=== PATIENT | female | born 1930 | race Caucasian/White ===

== ENCOUNTER 2016-08-10 13:42 | Inpatient (IN) ==
--- NOTE | 2016-08-10 14:35 | XRay Report ---
Portable chest Date: 08/10/2016 Clinical history: Weakness Comparison: 06/09/2016 Technique: Portable AP sitting chest Findings: The heart is minimally enlarged with density posterior to the heart consistent with larger hiatal hernia. Chronic scarring with atelectasis at the left lung base. Osteopenia with prior right shoulder replacement. Degenerative changes are noted. Impression: Larger hiatal hernia. Chronic scarring in the lungs with atelectasis at the left lung base. The heart is minimally larger in size. Osteopenia with prior right shoulder replacement. PROCEDURE INTERPRETED AT [facility] ([facility]) DEPARTMENT OF RADIOLOGY Final Report Signed by: Dr. Francesca Saavedra
--- NOTE | 2016-08-10 14:40 | CT Report ---
CT head/brain wo con Indication: Lethargy Comparison: None Technique: Multiple axial tomographic images of the brain were obtained without the use of intravenous contrast. Findings: Midline structures are nondisplaced. Moderate global volume loss present. Moderate periventricular and subcortical hypoattenuation noted which is nonspecific but consistent with chronic microvascular ischemic change. Demyelinating process and vasculitis less likely considerations. There is moderate prominence of the bilateral lateral ventricles which is most likely related to ex vacuo dilatation secondary to volume loss. However, clinical correlation to exclude normal pressure hydrocephalus recommended. There is no evidence of acute intracranial hemorrhage. Atherosclerotic calcifications demonstrated. The visualized paranasal sinuses and bilateral mastoid air cells are essentially clear. IMPRESSION: No convincing CT evidence of acute intracranial abnormality. Probable chronic microvascular ischemic change and volume loss.There is moderate prominence of the bilateral lateral ventricles which is most likely related to ex vacuo dilatation secondary to volume loss. However, clinical correlation to exclude normal pressure hydrocephalus recommended. The CT exam was performed using one or more of the following dose reduction techniques: Automated exposure control, adjustment of the mA and/or kV according to patient size, or use of iterative reconstruction technique. PROCEDURE INTERPRETED AT [facility] DEPARTMENT OF RADIOLOGY Final Report Signed by: Dr Kendall Ferrari
--- NOTE | 2016-08-10 14:52 | Emergency Department Note ---
Charisma Humphries Hilary, am scribing for, and in the presence of, Jani Murphy MD 14: 23. Katherine Humphries James D, MD, personally performed the services described in this documentation, ascribed by Sandra Zafar in my presence, and it is both accurate and complete [id number] . Arrival - Arrival Chief Complaint: Weakness Stated Complaint: weakness ED Nursing Triage Note: Brought in per EMS from with c/o generalized weakness worsening today. Spouse reports weakness has been ongoign for approx one week with worsening today when unable to stand without assistance. Denies pain. Mode of Arrival: Stretcher Limitations: No Limitations Source: Patient, RN Notes Reviewed Time Seen by Provider: 08/10/16 14:02 - History of Present Illness HPI Narrative: Pt is a 85 y/o white female brought into the ED via EMS with c/o generalized weakness which worsened today. Pts states that she was told she "collapsed" but doesn't think she passed out. Pt confirms weakness but denies SOB or chest pain. No other complaints or problems stated in the ED. She does have a pressure ulcer on her back side that is being monitored by her doctor. Onset (ago): year(s) Consistency: constant Severity: mild Severity scale (1-10): 1 Date of Last Menstrual Period: PM Allergies/Adverse Reactions: Allergies Allergy/AdvReac Type Severity Reaction Status Date / Time No Known Allergies Allergy Verified 08/10/16 13:54 Home Medications: Home Medications Medication Instructions Recorded Confirmed Type Amlodipine Besylate 5 mg PO BEDTIME 07/10/15 08/10/16 History Aspirin [Ecotrin] 81 mg PO DAILY 07/10/15 08/10/16 History Calcium (Citr)/Vit D 200-125 1 tablet PO BID 07/10/15 08/10/16 History [Citracal + D] Fluticasone/Salmeterol 100-50 1 puff INH BID 07/10/15 08/10/16 History [Advair 100-50] Gabapentin 300 mg PO BID 07/10/15 08/10/16 History Ipratropium Inhaler [Atrovent 2 puff INH BID 07/10/15 08/10/16 History Inhaler] Magnesium Chloride [Mag Delay] 64 mg PO DAILY 07/10/15 08/10/16 History Methocarbamol Tab [Robaxin Tab] 500 mg PO BEDTIME 07/10/15 08/10/16 History Omeprazole 20 mg PO DAILY 07/10/15 08/10/16 History cloNIDine TAB [Catapres Tab] 0.1 mg PO BEDTIME 07/10/15 08/10/16 History clonazePAM [Klonopin] 1 mg PO DAILY 07/10/15 08/10/16 History Melatonin/Pyridoxine HCl (B6) 1 each PO BEDTIME 05/25/16 08/10/16 History [Melatonin 3 mg Tablet] Escitalopram [Lexapro] 10 mg PO DAILY 08/10/16 08/10/16 History Ferrous Sulfate Tab [Feosol 325 mg PO BID 08/10/16 08/10/16 History Original Tab] Furosemide Tab [Lasix Tab] 20 mg PO DAILY 08/10/16 08/10/16 History Losartan [Cozaar] 25 mg PO DAILY 08/10/16 08/10/16 History fentaNYL [Fentanyl 25 mcg/hr Patch] 1 patch TRANSDERM Q308/10/16 08/10/16 History Review of System - Review of System 12 point system: reviewed and no additional remarkable complaints except as stated - Review of System Constitutional: Present: weakness. Absent: fever Respiratory: Absent: respiratory distress (SOB) Cardiovascular: Absent: chest pain Neurological: Present: weakness Medical,Surgical,& Family Hx - Medical History Cardio: History of: Hypertension Psychological: History of: Depression (OCCASIONAL) Neurology: No history of: Seizures HEENT: History of: Ear Problem ([place]), Eye Problem (GLASSES) Rheumatology: History of;: Rheumatoid Arthritis Respiratory: History of: Asthma Comment Only: Respiratory Problems (FLU VAC- YES; PNEU VAC- NO) Genitourinary: History of: Bladder Problem (FREQUENT URINATION) Gastrointestinal: History of: GERD Musculoskeletal: History of: Back/Neck Problems (LOWER BACK PAIN. DR SAGE BACK INJECTIONS 2005.) Other: History of: Cancer (MELANOMA.) - Surgical History HEENT Surgeries: Surgical HX of: Eye Surgery (ANA MARÍA CATARACT SX) Abdominal Surgeries: Surgical HX of: Cholecystectomy Orthopedic Surgeries: Surgical HX of;: Orthopedic Surgery (RT SHOULDER REPLACEMENT), Total Hip Replacement (left), Total Knee Replacement (ANA MARÍA KNEES) - Family History Family History: Reports;: Family Diabetes, Family Hypertension, Family Stroke - Social History Smoking Status: Never smoker Frequency of Alcohol Use: None Type of Drug Use: None Exam Physical Examination: GENERAL: This is a lethergic well-nourished, well-developed in no apparent distress. VITAL SIGNS: Temperature: 98.0 Pulse: 64 Respiratory: 20 Blood Pressure: 90/ 40 O2 Sat: 96 HEENT: Head is normocephalic and atraumatic. Pupils are equally round and reactive to light. Extraocular movement are intact. Oropharynx is benign with moist mucous membranes. NECK: Neck is soft and supple without tenderness. There are no masses. There is no lymphadenopathy. LUNGS: Lungs are clear to auscultation bilaterally. Chest rises symmetrically. There is no chest wall tenderness. CV: Heart is regular rate and rhythm without murmurs, rubs, or gallops. ABDOMEN: Abdomen is soft,non- tender to palpation. There are no abnormal masses palpated. There is no organomegaly. Bowel sounds are present and active. SKIN: Skin is warm and dry. No rash. Decubitis ulcer of the sacrum, clean but deep, probably stage three EXTREMITIES: Patient has full range of motion without tenderness. There is no pedal edema. NEUROLOGIC: Awake, alert, and oriented x4. Cranial nerves II through XII are grossly intact. There are no motorsensory deficits. PSYCHIATRIC: Normal affect. Normal mood. Lethargic. Vital Signs: Vital Signs Temperature 98.0 F 08/10/16 14:03 Pulse Rate 64 08/10/16 14:03 Respiratory Rate 16 08/10/16 14:05 Blood Pressure 90/40 08/10/16 14:03 O2 Sat by Pulse Oximetry 96 08/10/16 13:42 Course Course Narrative: Urine is pending. Multiple attempts at catheter been unsuccessful. Patient has been given IV fluids and is yet to void. - Consultations Consultation #1: Discussed with hospitalist. Patient will be admitted to their service. Time: 17:49 Results - Labs CBC & BMP: 08/10/16 14:53 08/10/16 14:53 Lab Results: I have reviewed the patients labs Labs: Laboratory Tests 08/10/16 08/10/16 14:53 14:53 WBC 10.9 RBC 2.90 L Hgb 8.7 L Hct 27.5 L MCHC 31.6 L MPV 9.1 L Neut % (Auto) 76.5 H Lymph % (Auto) 9.8 L Neut # (Auto) 8.4 H Lymph # (Auto) 1.1 L [place] # (Auto) 1.0 H Sodium 135 L Potassium 4.8 Chloride 99 Carbon Dioxide 29 BUN 30 H Creatinine 1.70 H ALT 9 L Total Protein 6.0 L Albumin 2.3 L Globulin 3.7 H Albumin/Globulin Ratio 0.6 L - Diagnostic Findings Procedure: Chest x-ray: image reviewed by me (Chest x-ray reveals large hiatal hernia, nonspecific increased pulmonary markings in the right lower lobe. Patient has no pleural effusions. There are no infiltrates.), CT: image reviewed by me (CT head: No acute intracranial lesion or hemorrhage. Patient has cerebral atrophy.) Disposition Clinical Impression: Lethargy, Polypharmacy, Sacral decubitus ulcer, stage III Case discussed with: patient Disposition: Still a Patient Condition: Stable Time of Disposition: 17:58
[2016-08-10 15:03] LABS: Basophils # 0.1 10*3/uL (0.0-0.2); Basophils % 0.5 % (0.0-0.8); Eosinophils # 0.4 10*3/uL (0.0-0.87); Eosinophils % 3.5 % (0.00-10.9); Hematocrit 27.5 VOL% (35.7-47.0); Hemoglobin 8.7 GM/DL (12.0-16.0); Immature Granulocytes % 0.6 %; Immature Granulocytes Absolute 0.07 #; Lymphocytes # 1.1 10*3/uL (1.4-4.0); Lymphocytes % 9.8 % (21.3-54.2); Mean Corpuscular HGB Conc 31.6 GM/DL (32-36); Mean Corpuscular Hemoglobin 30 PG (27-34); Mean Corpuscular Volume 94.8 FL (87-102); Mean Platelet Volume 9.1 FL (9.6-12.0); Monocytes % 9.1 % (1.7-12.7); Neutrophils # 8.4 10*3/uL (1.4-7.4); Neutrophils % 76.5 % (38.7-73.9); Platelet Count 400 T/CUMM (130-400); Red Cell Distribution Width 13.5 % (9.3-17.3); White Blood Count 10.9 T/CUMM (4-12)
[2016-08-10 15:32] LABS: Alanine Aminotransferase 9 U/L (13-56); Albumin 2.3 G/DL (3.4-5.0); Alkaline Phosphatase 61 U/L (45-117); Aspartate Amino Transferase 10 U/L (0-37); Bilirubin,Total < 0.39 MG/DL (0.2-1.0); Blood Urea Nitrogen 30 MG/DL (7-18); Calcium 8.9 MG/DL (8.5-10.1); Glucose 97 MG/DL (74-106); Osmolality,Calculated 275.1 MOS/KG (273-304); Potassium 4.8 MMOL/L (3.5-5.1); Sodium 135 MMOL/L (136-145)
[2016-08-10] MEDS ORDERED: SODIUM CHLORIDE 0.9% 1,000 ML IV STA (16:39)
--- NOTE | 2016-08-10 18:59 | Hospitalist History & Physical ---
Assessment and Plan - Time spent with patient Time spent with patient: Greater than 30 minutes (1) Weakness Status: Acute Assessment and plan: Head CT unremarkable. We will admit the patient to inpatient. Will obtain an MRI. Physical therapy/Occupational Therapy and social work evaluate. Current Visit: Yes (2) Polypharmacy Status: Acute Assessment and plan: We will be conservative with her medications. Current Visit: Yes (3) Poor appetite Status: Acute Assessment and plan: We will consult dietitian. We will continue to follow. Current Visit: Yes (4) Sacral decubitus ulcer, stage III Status: Acute Assessment and plan: Wound care. Current Visit: Yes (5) Asthma, mild intermittent Status: Acute Assessment and plan: Continue medications. Current Visit: No (6) Hypertension Status: Acute Assessment and plan: We will hold the patient's blood pressure medications given her hypotension in the ER. Current Visit: Yes (7) Chronic pain Status: Acute Assessment and plan: She has a fentanyl patch on however does not take any [place] according to the . She is on gabapentin and methocarbamol for muscle spasms. Current Visit: Yes History of Present Illness Chief complaint: Weakness and lethargy History of present illness: Ms. 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 The patient is lethargic, and quick to fall asleep. History was obtained from her . According to her , she has been progressively getting weak over the last week with increased worsening over the last two days. He states she was discharged to [facility] in May where she stayed for one month for rehab. He states she developed a sacral decub which is being followed by Dr Gross, and improving, but consequently its presence "keeps her from doing anything". Beginning monday, she has been sleeping more than usual, and for about 12 hours on Monday. The day of admission she required assistance to get out of her chair, and couldn't even stand straight without holding on to his shoulders. He states, despite this, she fell, and brought him with her. He had to call a neighbor to get her off the floor. He is unable to care for her in this state. Denies any addition of new medications, or changes in medication frequency or dosing. She denies having any pain, shortness of breath. She endorses not being hungry most of the time, and feeling extremely weak. She puts very little effort into participating in the physical examination. Full 10 point review of systems performed. Home Medications Medication Instructions Recorded Confirmed Type Amlodipine Besylate 5 mg PO BEDTIME 07/10/15 08/10/16 History Aspirin [Ecotrin] 81 mg PO DAILY 07/10/15 08/10/16 History Calcium (Citr)/Vit D 200-125 1 tablet PO BID 07/10/15 08/10/16 History [Citracal + D] Fluticasone/Salmeterol 100-50 1 puff INH BID 07/10/15 08/10/16 History [Advair 100-50] Gabapentin 300 mg PO BID 07/10/15 08/10/16 History Ipratropium Inhaler [Atrovent 2 puff INH BID 07/10/15 08/10/16 History Inhaler] Magnesium Chloride [Mag Delay] 64 mg PO DAILY 07/10/15 08/10/16 History Methocarbamol Tab [Robaxin Tab] 500 mg PO BEDTIME 07/10/15 08/10/16 History Omeprazole 20 mg PO DAILY 07/10/15 08/10/16 History cloNIDine TAB [Catapres Tab] 0.1 mg PO BEDTIME 07/10/15 08/10/16 History clonazePAM [Klonopin] 1 mg PO DAILY 07/10/15 08/10/16 History Melatonin/Pyridoxine HCl (B6) 1 each PO BEDTIME 05/25/16 08/10/16 History [Melatonin 3 mg Tablet] Escitalopram [Lexapro] 10 mg PO DAILY 08/10/16 08/10/16 History Ferrous Sulfate Tab [Feosol 325 mg PO BID 08/10/16 08/10/16 History Original Tab] Furosemide Tab [Lasix Tab] 20 mg PO DAILY 08/10/16 08/10/16 History Losartan [Cozaar] 25 mg PO DAILY 08/10/16 08/10/16 History fentaNYL [Fentanyl 25 mcg/hr Patch] 1 patch TRANSDERM Q3DAY 08/10/16 08/10/16 History Allergies Allergy/AdvReac Type Severity Reaction Status Date / Time No Known Allergies Allergy Verified 08/10/16 13:54 Medical,Surgical,& Family Hx - Medical History Cardio: History of: Hypertension Psychological: History of: Depression (OCCASIONAL) Neurology: No history of: Seizures HEENT: History of: Ear Problem (K[place]), Eye Problem (GLASSES) Rheumatology: History of;: Rheumatoid Arthritis Respiratory: History of: Asthma Comment Only: Respiratory Problems (FLU VAC- YES; PNEU VAC- NO) Genitourinary: History of: Bladder Problem (FREQUENT URINATION) Gastrointestinal: History of: GERD Musculoskeletal: History of: Back/Neck Problems (LOWER BACK PAIN. DR SAGE BACK INJECTIONS 2005.) Other: History of: Cancer (MELANOMA.) - Surgical History HEENT Surgeries: Surgical HX of: Eye Surgery (ANA MARÍA CATARACT SX) Abdominal Surgeries: Surgical HX of: Cholecystectomy Orthopedic Surgeries: Surgical HX of;: Orthopedic Surgery (RT SHOULDER REPLACEMENT), Total Hip Replacement (left), Total Knee Replacement (ANA MARÍA KNEES) - Family History Family History: Reports;: Family Diabetes, Family Hypertension, Family Stroke - Social History Smoking Status: Never smoker Frequency of Alcohol Use: None Type of Drug Use: None 12 point system: reviewed and no additional remarkable complaints except as stated Exam - Constitutional Vitals: Period Temp Pulse Resp BP Sys/Haro Pulse Ox Last 24 Hr 98.0 F-98.0 F 64-64 16-20 90-90/40-40 96 General appearance: no acute distress - Head Head exam: Present: normocephalic, atraumatic - Eye Eye exam: Present: EOMI Pupils: Present: NATHALY - ENT ENT exam: Present: normal exam - Neck Neck exam: Present: normal inspection - Respiratory Respiratory exam: Present: clear to auscultation bilaterally. Absent: rhonchi, wheezes - Cardiovascular Cardiovascular exam: Present: regular rate and rhythm. Absent: gallop, rubs, systolic murmur - GI/Abdominal GI/Abdominal exam: Present: normal bowel sounds, soft. Absent: distended, firm , guarding, tenderness, rebound - Extremities Exam Extremities exam: Present: normal inspection. Absent: calf tenderness, edema Results - Labs CBC & BMP: 08/10/16 14:53 08/10/16 14:53 Lab Results: I have reviewed the past 24 hour labs
[2016-08-10] MEDS: IPRATROPIUM 500 MCG/2.5 ML NEB RESP TX SCH (19:57)
[2016-08-10] MEDS ORDERED: PNEUMOCOCCAL VACCINE (13 VALENT) 0.5 ML SYRINGE IM ONE (19:58)
[2016-08-10] MEDS: FLUTICASONE/SALMETEROL 100-50 DISKUS 14 DOSE INH SCH (22:10)
[2016-08-10] MEDS: GABAPENTIN 100 MG CAPSULE PO SCH (22:11)
[2016-08-11 07:01] LABS: Basophils # 0.1 10*3/uL (0.0-0.2); Basophils % 0.6 % (0.0-0.8); Eosinophils # 0.4 10*3/uL (0.0-0.87); Eosinophils % 4.9 % (0.00-10.9); Hematocrit 25.2 VOL% (35.7-47.0); Immature Granulocytes % 0.8 %; Immature Granulocytes Absolute 0.07 #; Lymphocytes % 12.3 % (21.3-54.2); Mean Corpuscular HGB Conc 31.7 GM/DL (32-36); Mean Corpuscular Hemoglobin 30 PG (27-34); Mean Corpuscular Volume 93.3 FL (87-102); Mean Platelet Volume 9.6 FL (9.6-12.0); Monocytes # 0.7 10*3/uL (0.11-0.8); Monocytes % 8.3 % (1.7-12.7); Neutrophils # 6.1 10*3/uL (1.4-7.4); Neutrophils % 73.1 % (38.7-73.9); Platelet Count 392 T/CUMM (130-400); Red Cell Distribution Width 13.6 % (9.3-17.3); White Blood Count 8.4 T/CUMM (4-12)
[2016-08-11] MEDS: IPRATROPIUM 500 MCG/2.5 ML NEB RESP TX SCH ×2 (07:19→19:05)
[2016-08-11 07:30] LABS: Alanine Aminotransferase 11 U/L (13-56); Albumin 2.1 G/DL (3.4-5.0); Alkaline Phosphatase 54 U/L (45-117); Aspartate Amino Transferase 9 U/L (0-37); Bilirubin,Total < 0.39 MG/DL (0.2-1.0); Blood Urea Nitrogen 24 MG/DL (7-18); Calcium 8.8 MG/DL (8.5-10.1); Glucose 77 MG/DL (74-106); Osmolality,Calculated 283.3 MOS/KG (273-304); Potassium 4.7 MMOL/L (3.5-5.1); Sodium 141 MMOL/L (136-145); Total Protein 5.5 G/DL (6.4-8.3)
--- NOTE | 2016-08-11 08:11 | Hospitalist Progress Note ---
Assessment and Plan (1) Polypharmacy Status: Acute Assessment and plan: Impression: 1. Polypharmacy 2. Generalized weakness, likely due to #1 3. Anemia of chronic disease 4. Malnutrition Plan: Continue to hold medications. Gentle volume expansion. We will attempt to discuss discharge goals with when he is available. This note was completed using [employer] voice recognition software. There may be dehydrogenation supervisor errors as a result. Current Visit: Yes Hospitalist: Subjective Interval history: Follow-up generalized weakness, polypharmacy, anemia of chronic disease. The patient is apparently more alert today. She is able to participate in the interview. She says that she has become gradually weaker over the past several days. She is unable to manage at home. Her brought her in for evaluation of the weakness. She denies any chest pain, cough, dyspnea, nausea, vomiting, diarrhea, dysuria, or fever. Exam - Constitutional Vitals: Period Temp Pulse Resp BP Sys/Haro Pulse Ox Last 24 Hr 97.3 F-98.3 F 56-77 12-20 90-126/38-71 89-99 Vital signs are noted above. Heart is regular with distant tones and no murmur. Lungs are fairly clear with no rales or wheezes. Abdomen is soft without any significant mass or tenderness. She does not have any significant peripheral edema. She is awake and alert Results - Labs CBC & BMP: 08/11/16 06:25 08/11/16 06:25 Lab Results: I have reviewed the past 24 hour labs (Creatinine is trending down)
[2016-08-11] MEDS: PANTOPRAZOLE 40 MG TABLET PO SCH (08:51)
[2016-08-11] MEDS: ASPIRIN EC 81 MG TABLET PO SCH (08:51)
[2016-08-11] MEDS: GABAPENTIN 100 MG CAPSULE PO SCH ×2 (08:51→20:41)
[2016-08-11] MEDS: FLUTICASONE/SALMETEROL 100-50 DISKUS 14 DOSE INH SCH ×2 (08:52→20:41)
[2016-08-11] MEDS: MULTIVITAMIN (CENTRUM) TABLET PO SCH (11:53)
--- NOTE | 2016-08-11 17:02 | Magnetic Resonance Report ---
Exam: MR head/brain wo con Date: 08/11/2016 7:30 PM Comparison: CT brain 08/10/2016 Indication: Global weakness, lethargy, anemia of chronic disease Technique:[Multiple acquisitions were obtained including sagittal T1, coronal T2, and axial ADC, diffusion, FLAIR, T2, GRE, and T1 scans without contrast only. Scans were obtained on an open 1.2 Hoa magnet.] Findings: The ventricles remain minimally dilated with no midline displacement. The pituitary has a normal appearance and the cerebellar tonsils are normal in their location. No acute infarction is identified in the diffusion scans. Diffuse atrophy and FLAIR/T2 hyperintensities. No acute findings in the paranasal sinuses, orbits, temporal bones, or wiyot of [place]. Limited evaluation of the degenerative changes in the cervical spine. Impression: No acute infarction, mass, or extracerebral collection. Diffuse atrophy and moderately severe microvascular disease. T2 hyperintensities can also be associated with demyelinating disease, viral illness, vasculitis, etc. Minimal dilatation of the ventricles which may be compensatory but it would be difficult to exclude developing NPH and short-term follow-up CT or MRI may be helpful for further evaluation. Limited evaluation of the degenerative changes in the visualized cervical spine. PROCEDURE INTERPRETED AT [facility] DEPARTMENT OF RADIOLOGY Final Report Signed by: Dr. Francesca Saavedra
--- NOTE | 2016-08-12 08:16 | Hospitalist Progress Note ---
Assessment and Plan (1) Polypharmacy Status: Acute Assessment and plan: Impression: 1. Polypharmacy 2. Generalized weakness, likely due to #1 3. Anemia of chronic disease 4. Malnutrition Plan: The patient is agreeable to swing bed. We will see if she qualifies. She may be ready for discharge. This note was completed using [employer] voice recognition software. There may be patrol judge errors as a result. Current Visit: Yes Hospitalist: Subjective Interval history: Follow-up polypharmacy. The patient is awake and conversant today. 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 She apparently has poor mobility status, and we discussed possibly going to a swing bed for some physical therapy before going home. She apparently lives at home with her elderly . She reports undergoing bilateral knee arthroplasty in the past, but says that the knee joints do not hurt. Exam - Constitutional Vitals: Period Temp Pulse Resp BP Sys/Haro Pulse Ox Last 24 Hr 98.3 F-98.6 F 80-92 16-20 108-131/57-63 92-98 Heart is regular with no murmur or gallop. Lungs are fairly clear with no rales or wheezes. Abdomen is soft without any mass or tenderness. Right lower extremity is a bit weaker compared to the left. She is awake and alert Results - Labs CBC & BMP: 08/11/16 06:25 08/11/16 06:25
[2016-08-12] MEDS: IPRATROPIUM 500 MCG/2.5 ML NEB RESP TX SCH ×2 (08:41→19:42)
[2016-08-12] MEDS: PANTOPRAZOLE 40 MG TABLET PO SCH (08:53)
[2016-08-12] MEDS: MULTIVITAMIN (CENTRUM) TABLET PO SCH (08:53)
[2016-08-12] MEDS: ASPIRIN EC 81 MG TABLET PO SCH (08:54)
[2016-08-12] MEDS: FLUTICASONE/SALMETEROL 100-50 DISKUS 14 DOSE INH SCH ×2 (08:54→21:21)
[2016-08-12] MEDS: GABAPENTIN 100 MG CAPSULE PO SCH ×2 (08:58→21:21)
[2016-08-12] MEDS ORDERED: TUBERCULIN SKIN TEST 0.1 ML SYRINGE INTRADERM ONE (09:30)
[2016-08-13] MEDS: IPRATROPIUM 500 MCG/2.5 ML NEB RESP TX SCH ×2 (07:13→19:20)
--- NOTE | 2016-08-13 08:13 | Hospitalist Progress Note ---
Assessment and Plan (1) Polypharmacy Status: Acute Assessment and plan: Impression: 1. Polypharmacy 2. Generalized weakness, likely due to #1 3. Anemia of chronic disease 4. Malnutrition Plan: Discharge when she is accepted at the [facility] bed. This note was completed using [employer] voice recognition software. There may be bumper machine operator errors as a result. Current Visit: Yes Hospitalist: Subjective Interval history: Follow-up polypharmacy, deconditioning and weakness, and anemia of chronic disease. The patient continues to improve slowly. She is awake and conversant. She again expresses agreement and going to the [facility] for rehabilitation. We are waiting to hear whether or not she is accepted. She is ready for transfer whenever she is accepted Exam - Constitutional Vitals: Period Temp Pulse Resp BP Sys/Haro Pulse Ox Last 24 Hr 98.5 F-99.5 F 54-98 16-20 123-143/55-77 92-100 Vital signs are noted above. Heart is regular with no murmur or gallop. Lungs are clear with no rales or wheezes. She needs some assistance with set up of her tray. Results - Labs CBC & BMP: 08/11/16 06:25 08/11/16 06:25 Lab Results: I have reviewed the past 24 hour labs
[2016-08-13] MEDS: PANTOPRAZOLE 40 MG TABLET PO SCH (08:41)
[2016-08-13] MEDS: ASPIRIN EC 81 MG TABLET PO SCH (08:42)
[2016-08-13] MEDS: GABAPENTIN 100 MG CAPSULE PO SCH ×2 (08:42→20:18)
[2016-08-13] MEDS: MULTIVITAMIN (CENTRUM) TABLET PO SCH (08:42)
[2016-08-13] MEDS: FLUTICASONE/SALMETEROL 100-50 DISKUS 14 DOSE INH SCH ×2 (08:45→20:18)
[2016-08-14] MEDS: IPRATROPIUM 500 MCG/2.5 ML NEB RESP TX SCH ×2 (07:31→19:35)
--- NOTE | 2016-08-14 07:55 | Hospitalist Progress Note ---
Assessment and Plan (1) Polypharmacy Status: Acute Assessment and plan: Impression: 1. Polypharmacy 2. Generalized weakness, likely due to #1 3. Anemia of chronic disease 4. Malnutrition 5. Probable restless leg syndrome Plan: Iron replacement and low-dose Mirapex for restless legs. Discharge when she is accepted at the swing bed. This note was completed using [employer] voice recognition software. There may be human resource internship errors as a result. Current Visit: Yes Hospitalist: Subjective Interval history: Follow-up polypharmacy with generalized weakness, anemia of chronic disease, and malnutrition. The patient says that her restless legs kept her awake all night long. She reports that she has had this problem for years, and has never been treated for it. She says her symptoms are primarily nocturnal. She denies any dyspnea. We are waiting to hear from [facility] regarding transfer. Exam - Constitutional Vitals: Period Temp Pulse Resp BP Sys/Haro Pulse Ox Last 24 Hr 97.2 F-99.6 F 73-107 14-20 129-159/62-88 93-99 Vital signs are noted above. Heart is regular with skips. Chest is clear with no rales or wheezes. Abdomen is soft without any mass. She is awake and alert Results - Labs CBC & BMP: 08/11/16 06:25 08/11/16 06:25
[2016-08-14] MEDS: ASPIRIN EC 81 MG TABLET PO SCH (08:42)
[2016-08-14] MEDS: MULTIVITAMIN (CENTRUM) TABLET PO SCH (08:42)
[2016-08-14] MEDS: PANTOPRAZOLE 40 MG TABLET PO SCH (08:42)
[2016-08-14] MEDS: GABAPENTIN 100 MG CAPSULE PO SCH ×2 (08:42→22:21)
[2016-08-14] MEDS: FERROUS SULFATE 325 MG TABLET PO SCH ×2 (08:47→22:21)
[2016-08-14] MEDS: FLUTICASONE/SALMETEROL 100-50 DISKUS 14 DOSE INH SCH ×2 (08:48→22:22)
[2016-08-14] MEDS ORDERED: PRAMIPEXOLE 0.25 MG TABLET PO SCH (21:00)
[2016-08-15] MEDS: IPRATROPIUM 500 MCG/2.5 ML NEB RESP TX SCH (07:28)
[2016-08-15] MEDS: GABAPENTIN 100 MG CAPSULE PO SCH (10:02)
[2016-08-15] MEDS: MULTIVITAMIN (CENTRUM) TABLET PO SCH (10:02)
[2016-08-15] MEDS: FLUTICASONE/SALMETEROL 100-50 DISKUS 14 DOSE INH SCH (10:02)
[2016-08-15] MEDS: PANTOPRAZOLE 40 MG TABLET PO SCH (10:03)
[2016-08-15] MEDS: ASPIRIN EC 81 MG TABLET PO SCH (10:03)
[2016-08-15] MEDS: FERROUS SULFATE 325 MG TABLET PO SCH (10:03)
[2016-08-15 10:08] LABS: Hematocrit 31.7 VOL% (35.7-47.0); Hemoglobin 10.3 GM/DL (12.0-16.0)
--- NOTE | 2016-08-15 10:55 | Discharge Summary ---
<LambertFrancifrancesca - Last Filed: 08/15/16 16:53> Hospital Course - Hospital Course Hospital Course: Ms. Ngo is a 85 year old female with a medical history of chronic low back pain on correction narcotics, HTN, Asthma, who presented to the ED on 08/10 with weakness, poor appetite. The patient was noted to be very lethargic. was at bedside at time and provided history. Pt. was recently discharged from [facility] in May where she'd been for a month. Pt. was admitted for further eval and treatment. PT was consulted to treat. Pt's requested swingbed placement. Pt. was approved and will be transferred today. Labs and vital signs are stable. Discharge Plan - Discharge Data Disposition: Swing Bed, Hos Based, [facility] - Discharge Medications New Multivitamin (Centrum) [Centrum Tab] 1 tablet PO DAILY tablet Gabapentin Cap/Tab [Neurontin Cap/Tab] 100 mg PO BID #0 capsule Pramipexole [Mirapex] 0.125 mg PO BEDTIME #0 tablet Continue Ipratropium Inhaler [Atrovent Inhaler] 2 puff INH BID Fluticasone/Salmeterol 100-50 [Advair 100-50] 1 puff INH BID Magnesium Chloride [Mag Delay] 64 mg PO DAILY Calcium (Citr)/Vit D 200-125 [Citracal + D] 1 tablet PO BID Aspirin [Ecotrin] 81 mg PO DAILY Amlodipine Besylate 5 mg PO BEDTIME Omeprazole 20 mg PO DAILY Ferrous Sulfate Tab [Feosol Original Tab] 325 mg PO BID Losartan [Cozaar] 25 mg PO DAILY Melatonin/Pyridoxine HCl (B6) [Melatonin 3 mg Tablet] 1 each PO BEDTIME Escitalopram [Lexapro] 10 mg PO DAILY Discontinued Methocarbamol Tab [Robaxin Tab] 500 mg PO BEDTIME cloNIDine TAB [Catapres Tab] 0.1 mg PO BEDTIME Gabapentin 300 mg PO BID clonazePAM [Klonopin] 1 mg PO DAILY fentaNYL [Fentanyl 25 mcg/hr Patch] 1 patch TRANSDERM Q3DAY Furosemide Tab [Lasix Tab] 20 mg PO DAILY - Follow Up or Referral - Forms/Instructions Exam - Constitutional Vitals: Period Temp Pulse Resp BP Sys/Haro Pulse Ox Last 24 Hr 97.3 F-99.5 F 66-101 18-20 142-159/67-82 92-100 Discharge Results Labs on day of discharge: Labs from last 24 hours 08/15/16 09:59 Hgb 10.3 L Hct 31.7 L DS: Provider Date of admission: 08/10/16 18:16 Primary care physician: Haider Fernandez MD Attending physician on admission: Rita Davis MD Consults: 08/10/16 19:20 Consult to Case Mgmt/Social Srvs [CONS] Routine Reason for Case Mgmt/Social Srvs: Discharge Planning Consult to Dietitian [CONS] Routine Reason for Dietitian: Dietary Consult Coumadin Education Consult to Occupational Therapy [CONS] Routine Reason for Occupational Therapy: Evaluate and Treat Consult to Physical Therapy [CONS] Routine Reason for Physical Therapy: Evaluate and Treat Consult to Wound Care - [place] [CONS] Routine Reason for Wound Care: Wound Care Management 08/10/16 19:58 Consult to Pastoral Services [CONS] Routine Comment: Pastoral Screen: Request Friend Of The Court Visit Pastoral Screen Source of Request: Family Discharging clinician: Amina Lambert NP <Conor Wren - Last Filed: 09/01/16 17:34> Discharge Plan - Discharge Data Condition at Discharge: Stable Discharge Diet: heart healthy Activity: resume usual activities as tolerated Hygiene: no restrictions Weight Bearing at Discharge: full weight bearing Driving: no restrictions - Forms/Instructions Additional Discharge Instructions: F/u with swingbed doctor as needed
[2016-08-15 11:33] VITALS: BP 148/73
== END 2016-08-15 12:20 | disposition swing bed (61) | DRG 947 ==
LOC: EDUNIT# → N.ED 13:42 → N.EDINP 18:16 → SUATTDRO 18:16 → N.2E 19:18
PROVIDERS: ADMIT Family Medicine; ATTEND Family Medicine

== ENCOUNTER 2017-11-27 10:15 | Inpatient (IN) ==
[2017-11-27] MEDS ORDERED: HYDROmorphone 2 MG/1 ML VIAL ONE (10:41)
[2017-11-27] MEDS ORDERED: ONDANSETRON 4 MG/2 ML VIAL IV STA (10:41)
[2017-11-27] MEDS ORDERED: HYDROmorphone 2 MG/1 ML VIAL IV STA (10:41)
[2017-11-27 11:10] LABS: Basophils # 0.1 10*3/uL (0.0-0.2); Basophils % 0.4 % (0.0-0.8); Eosinophils # 0.2 10*3/uL (0.0-0.87); Eosinophils % 1.1 % (0.00-10.9); Hemoglobin 10.7 GM/DL (12.0-16.0); Immature Granulocytes % 0.9 %; Immature Granulocytes Absolute 0.14 #; Lymphocytes # 0.7 10*3/uL (1.4-4.0); Lymphocytes % 4.6 % (21.3-54.2); Mean Corpuscular HGB Conc 32.4 GM/DL (32-36); Mean Corpuscular Hemoglobin 31 PG (27-34); Mean Corpuscular Volume 95.9 FL (87-102); Mean Platelet Volume 9.7 FL (9.6-12.0); Monocytes # 0.9 10*3/uL (0.11-0.8); Neutrophils # 13.1 10*3/uL (1.4-7.4); Platelet Count 357 T/CUMM (130-400); Red Blood Count 3.44 MC/CUMM (3.8-5.5); Red Cell Distribution Width 13.7 % (9.3-17.3); White Blood Count 15.1 T/CUMM (4-12)
[2017-11-27 11:19] LABS: PT Patient Result 10.1 SECS; Partial Thromboplastin Time 27.2 SECS (0-40)
[2017-11-27 11:31] LABS: Eosinophils 6 % (0-10); Hypochromasia 1+; Lymphocytes 3 % (20-55); Platelet Estimate Adequate; Segmented Neutrophils 87 % (50-85); Total Cells Counted 100
[2017-11-27 11:37] LABS: Alanine Aminotransferase 16 U/L (13-56); Albumin 2.8 G/DL (3.4-5.0); Alkaline Phosphatase 71 U/L (45-117); Aspartate Amino Transferase 19 U/L (0-37); Bilirubin,Total < 0.39 MG/DL (0.2-1.0); Blood Urea Nitrogen 22 MG/DL (7-18); Calcium 9.5 MG/DL (8.5-10.1); Glucose 111 MG/DL (74-106); Osmolality,Calculated 278.7 MOS/KG (273-304); Potassium 4.3 MMOL/L (3.5-5.1); Sodium 138 MMOL/L (136-145); Total Protein 6.9 G/DL (6.4-8.3)
[2017-11-27] MEDS ORDERED: LACTULOSE 20 GM/30 ML UDCUP PO PRN (12:20)
[2017-11-27] MEDS ORDERED: ACETAMINOPHEN 325 MG TABLET PO PRN ×2 (12:20→12:23)
[2017-11-27] MEDS ORDERED: guaiFENesin 200 MG/10 ML UDCUP PO PRN (12:23)
[2017-11-27] MEDS ORDERED: diphenhydrAMINE CAP 25 MG CAPSULE PO PRN (12:23)
[2017-11-27] MEDS: SODIUM CHLORIDE 0.9% 1,000 ML IV SCH (13:49)
[2017-11-27] MEDS ORDERED: NALOXONE 0.4 MG/ML VIAL IV PRN (14:02)
[2017-11-27] MEDS ORDERED: HYDROmorphone PCA 30 MG/30 ML SYRINGE IV SCH (14:30)
[2017-11-27] MEDS: IPRATROPIUM 500 MCG/2.5 ML NEB RESP TX SCH ×2 (15:20→19:29)
[2017-11-27] MEDS ORDERED: cefTRIAXone 1,000 MG in SYRINGE 1 EACH IV SCH (15:30)
[2017-11-27] MEDS ORDERED: ceFAZolin 1,000 MG VIAL ONE (16:47)
[2017-11-27] MEDS ORDERED: MAGNESIUM HYDROXIDE SUSP 30 ML UDCUP PO PRN (17:13)
[2017-11-27] MEDS ORDERED: BUPIVACAINE MPF 0.25% /EPI 30 ML VIAL ONE (18:32)
[2017-11-27] MEDS ORDERED: SEVOFLURANE 1 UNIT/15 MINUTE INH ONE (19:03)
[2017-11-27] MEDS ORDERED: GLYCOPYRROLATE 0.4 MG/2 ML VIAL ONE (19:04)
[2017-11-27] MEDS ORDERED: PHENYLEPHRINE 1 MG/10 ML SYRINGE IV ONE (19:04)
[2017-11-27] MEDS ORDERED: ETOMIDATE 40 MG/20 ML VIAL IV ONE (19:04)
[2017-11-27] MEDS ORDERED: ONDANSETRON 4 MG/2 ML VIAL ONE (19:04)
[2017-11-27] MEDS ORDERED: fentaNYL 100 MCG/2 ML VIAL ONE (19:04)
[2017-11-27] MEDS ORDERED: ROCURONIUM 100 MG/10 ML VIAL IV ONE (19:04)
[2017-11-27] MEDS ORDERED: NEOSTIGMINE 10 MG/10 ML VIAL ONE (19:04)
[2017-11-27] MEDS ORDERED: SILVER SULFADIAZINE TOP SCH (21:00)
[2017-11-27] MEDS ORDERED: NYSTATIN TOP SCH (21:00)
[2017-11-27 21:10] LABS: Apearance,Urine CLOUDY (Clear); Bilirubin,Urine Negative (Negative); Blood, Urine Moderate mg/dL (Negative); Glucose,Urine (UA) Negative (Negative); Hyaline Casts,Urine 142 /LPF (0-3); Ketones,Urine Negative (Negative); Nitrite,Urine Negative (Negative); Protein,Urine 30 MG/DL; RBC,Urine 36 /HPF (0-4); Urine Color Amber (Yellow); Urine Specific Gravity 1.013 (1.001-1.035); Urine Urobilinogen < 2.0 EU/DL (0.2-1.0); WBC,Urine 3248 /HPF (0-6)
[2017-11-27] MEDS: CALCIUM (CITRATE)/VITAMIN D 200 MG-125 UNIT TABLET PO SCH (21:25)
[2017-11-27] MEDS: DOCUSATE SODIUM 100 MG CAPSULE PO SCH (21:25)
[2017-11-27] MEDS: FLUTICASONE/SALMETEROL 100-50 DISKUS 14 DOSE INH SCH (21:25)
[2017-11-27] MEDS: GABAPENTIN 100 MG CAPSULE PO SCH (21:25)
[2017-11-27] MEDS: APIXABAN 2.5 MG TABLET PO SCH (21:25)
[2017-11-28] MEDS: IPRATROPIUM 500 MCG/2.5 ML NEB RESP TX SCH ×4 (07:19→19:47)
[2017-11-28] MEDS ORDERED: MEROPENEM 1,000 MG in SODIUM CHLORIDE 0.9% 100 ML IV SCH (07:30)
[2017-11-28 08:19] LABS: Basophils # 0.1 10*3/uL (0.0-0.2); Basophils % 0.7 % (0.0-0.8); Eosinophils # 0.1 10*3/uL (0.0-0.87); Eosinophils % 0.8 % (0.00-10.9); Hematocrit 26.7 VOL% (35.7-47.0); Hemoglobin 8.1 GM/DL (12.0-16.0); Immature Granulocytes % 0.4 %; Immature Granulocytes Absolute 0.04 #; Lymphocytes # 0.8 10*3/uL (1.4-4.0); Lymphocytes % 7.9 % (21.3-54.2); Mean Corpuscular HGB Conc 30.3 GM/DL (32-36); Mean Corpuscular Hemoglobin 30 PG (27-34); Mean Corpuscular Volume 98.2 FL (87-102); Mean Platelet Volume 10.2 FL (9.6-12.0); Monocytes # 0.9 10*3/uL (0.11-0.8); Monocytes % 8.9 % (1.7-12.7); Neutrophils # 8.1 10*3/uL (1.4-7.4); Neutrophils % 81.3 % (38.7-73.9); Platelet Count 311 T/CUMM (130-400); Red Blood Count 2.72 MC/CUMM (3.8-5.5); Red Cell Distribution Width 13.9 % (9.3-17.3)
[2017-11-28] MEDS: ceFAZolin 1,000 MG in SYRINGE 1 EACH IV SCH ×2 (08:59→17:50)
[2017-11-28] MEDS ORDERED: NON-FORMULARY MEDICATION (Omeprazole [Omeprazole] 20 MG) PO SCH (09:00)
[2017-11-28] MEDS ORDERED: SODIUM CHLORIDE 0.9% 1,000 ML IV PRN (10:27)
[2017-11-28] MEDS: ONDANSETRON 4 MG/2 ML VIAL IV PRN ×2 (10:50→20:43)
[2017-11-28] MEDS: SODIUM CHLORIDE 0.9% 1,000 ML IV SCH ×2 (12:02→18:45)
[2017-11-28] MEDS: FLUTICASONE/SALMETEROL 100-50 DISKUS 14 DOSE INH SCH ×2 (12:02→21:55)
[2017-11-28] MEDS: CALCIUM (CITRATE)/VITAMIN D 200 MG-125 UNIT TABLET PO SCH ×2 (12:03→21:54)
[2017-11-28] MEDS: DONEPEZIL 5 MG TABLET PO SCH (12:03)
[2017-11-28] MEDS: ASPIRIN EC 81 MG TABLET PO SCH (12:03)
[2017-11-28] MEDS: MULTIVITAMIN (CENTRUM) TABLET PO SCH (12:03)
[2017-11-28] MEDS: DOCUSATE SODIUM 100 MG CAPSULE PO SCH ×2 (12:03→21:54)
[2017-11-28] MEDS: GABAPENTIN 100 MG CAPSULE PO SCH ×2 (12:04→21:54)
[2017-11-28] MEDS: FOLIC ACID 1 MG TABLET PO SCH (12:04)
[2017-11-28] MEDS: FERROUS SULFATE 325 MG TABLET PO SCH (12:04)
[2017-11-28] MEDS: amLODIPine 5 MG TABLET PO SCH (12:04)
[2017-11-28] MEDS: PANTOPRAZOLE 40 MG TABLET PO SCH (12:04)
[2017-11-28] MEDS: APIXABAN 2.5 MG TABLET PO SCH ×2 (12:04→21:54)
[2017-11-28] MEDS: SERTRALINE 25 MG TABLET PO SCH (12:04)
[2017-11-28] MEDS ORDERED: SCOPOLAMINE 1.5 MG PATCH TRANSDERM ONE (12:13)
[2017-11-28 12:19] LABS: ABG Base Excess -2.3 MMOL/L (-2.5-2.5); ABG HCO3 22.4 MMOL/L (20-26); ABG Oxygen Saturation 92.5 % (95-100); ABG PCO2 47.8 MM HG (35-48); ABG PH 7.312 (7.35-7.45); ABG TCO2 22.3 MMOL/L (23-27); Allen Test Positive; Pt O2 Delivery Device Venturi Mask
[2017-11-28] MEDS: PIPERACILLIN/TAZOBACTAM 3,375 MG in SODIUM CHLORIDE 0.9% 100 ML IV SCH ×2 (12:52→21:45)
[2017-11-28] MEDS: MORPHINE 4 MG/1 ML VIAL IV PRN ×3 (15:35→20:43)
[2017-11-28] MEDS ORDERED: ASPIRIN EC 325 MG TABLET PO ONE (16:39)
[2017-11-28 18:11] LABS: Apearance,Urine CLOUDY (Clear); Bilirubin,Urine Negative (Negative); Blood, Urine Large mg/dL (Negative); Glucose,Urine (UA) Negative (Negative); Ketones,Urine 5 mg/dL (Negative); Mucus,Urine Occasional /LPF (Occasional); Nitrite,Urine Negative (Negative); Protein,Urine 30 MG/DL; RBC,Urine 220 /HPF (0-4); Urine Color Yellow (Yellow); Urine Specific Gravity 1.018 (1.001-1.035); Urine Urobilinogen < 2.0 EU/DL (0.2-1.0); WBC,Urine 90 /HPF (0-6)
[2017-11-28] MEDS: diphenhydrAMINE 50 MG/1 ML VIAL IV PRN (21:40)
[2017-11-29] MEDS: ceFAZolin 1,000 MG in SYRINGE 1 EACH IV SCH (01:40)
[2017-11-29] MEDS: MORPHINE 4 MG/1 ML VIAL IV PRN ×3 (01:46→23:12)
[2017-11-29] MEDS: ONDANSETRON 4 MG/2 ML VIAL IV PRN ×2 (01:47→07:02)
[2017-11-29] MEDS ORDERED: ceFAZolin 1,000 MG in SYRINGE 1 EACH IV SCH (02:00)
[2017-11-29] MEDS: diphenhydrAMINE 50 MG/1 ML VIAL IV PRN ×2 (02:10→09:17)
[2017-11-29 05:42] LABS: Basophils # 0.1 10*3/uL (0.0-0.2); Basophils % 0.5 % (0.0-0.8); Eosinophils # 0.1 10*3/uL (0.0-0.87); Eosinophils % 0.5 % (0.00-10.9); Hemoglobin 7.1 GM/DL (12.0-16.0); Immature Granulocytes % 0.6 %; Immature Granulocytes Absolute 0.08 #; Lymphocytes # 1.1 10*3/uL (1.4-4.0); Lymphocytes % 7.5 % (21.3-54.2); Mean Corpuscular HGB Conc 30.9 GM/DL (32-36); Mean Corpuscular Hemoglobin 31 PG (27-34); Mean Corpuscular Volume 99.1 FL (87-102); Mean Platelet Volume 10.4 FL (9.6-12.0); Monocytes # 1.1 10*3/uL (0.11-0.8); Neutrophils # 11.7 10*3/uL (1.4-7.4); Neutrophils % 82.9 % (38.7-73.9); Platelet Count 286 T/CUMM (130-400); Red Blood Count 2.32 MC/CUMM (3.8-5.5); White Blood Count 14.1 T/CUMM (4-12)
[2017-11-29] MEDS: IPRATROPIUM 500 MCG/2.5 ML NEB RESP TX SCH ×4 (06:51→19:56)
[2017-11-29] MEDS: PIPERACILLIN/TAZOBACTAM 3,375 MG in SODIUM CHLORIDE 0.9% 100 ML IV SCH ×3 (07:00→20:42)
[2017-11-29] MEDS ORDERED: ACETAMINOPHEN 325 MG TABLET PO ONE (08:57)
[2017-11-29] MEDS ORDERED: SODIUM CHLORIDE 0.9% 1,000 ML IV PRN (08:59)
[2017-11-29] MEDS: APIXABAN 2.5 MG TABLET PO SCH ×2 (09:19→20:41)
[2017-11-29] MEDS: DONEPEZIL 5 MG TABLET PO SCH (09:19)
[2017-11-29] MEDS: amLODIPine 5 MG TABLET PO SCH (09:19)
[2017-11-29] MEDS: SERTRALINE 25 MG TABLET PO SCH (09:19)
[2017-11-29] MEDS: FERROUS SULFATE 325 MG TABLET PO SCH (09:20)
[2017-11-29] MEDS: PANTOPRAZOLE 40 MG TABLET PO SCH (09:20)
[2017-11-29] MEDS: ASPIRIN EC 81 MG TABLET PO SCH (09:21)
[2017-11-29] MEDS: DOCUSATE SODIUM 100 MG CAPSULE PO SCH ×2 (09:21→20:42)
[2017-11-29] MEDS: GABAPENTIN 100 MG CAPSULE PO SCH ×2 (09:22→20:41)
[2017-11-29] MEDS: MULTIVITAMIN (CENTRUM) TABLET PO SCH (10:16)
[2017-11-29] MEDS: CALCIUM (CITRATE)/VITAMIN D 200 MG-125 UNIT TABLET PO SCH ×2 (10:16→20:42)
[2017-11-29] MEDS: FOLIC ACID 1 MG TABLET PO SCH (10:17)
[2017-11-29] MEDS ORDERED: SKIN HEALING OINT (AQUAPHOR) 50 GM TUBE TOP PRN (10:38)
[2017-11-29] MEDS: BACITRACIN OINT 0.9 GM PACK TOP SCH (13:30)
[2017-11-29] MEDS: methylPREDNISolone SOD SUC 40 MG/1 ML VIAL IV SCH ×2 (13:30→18:01)
[2017-11-29] MEDS: ZINC OXIDE PASTE 113 GM TUBE TOP SCH ×2 (13:31→20:42)
[2017-11-29] MEDS: FLUTICASONE/SALMETEROL 100-50 DISKUS 14 DOSE INH SCH ×2 (13:31→20:42)
[2017-11-29] MEDS: hydrOXYzine HCL 25 MG TABLET PO PRN (16:49)
[2017-11-29 19:23] LABS: Hematocrit 31.7 VOL% (35.7-47.0)
[2017-11-29 19:25] LABS: Hemoglobin 10.4 GM/DL (12.0-16.0)
[2017-11-29] MEDS: SODIUM CHLORIDE 0.9% 1,000 ML IV SCH (20:33)
[2017-11-29] MEDS ORDERED: diphenhydrAMINE 50 MG/1 ML VIAL IV ONE (21:20)
[2017-11-30] MEDS: SODIUM CHLORIDE 0.9% 1,000 ML IV SCH ×2 (04:15→21:15)
[2017-11-30] MEDS: methylPREDNISolone SOD SUC 40 MG/1 ML VIAL IV SCH ×3 (04:16→18:36)
[2017-11-30] MEDS: PIPERACILLIN/TAZOBACTAM 3,375 MG in SODIUM CHLORIDE 0.9% 100 ML IV SCH (04:17)
[2017-11-30 04:32] LABS: Basophils % 0.2 % (0.0-0.8); Hematocrit 28.9 VOL% (35.7-47.0); Hemoglobin 9.4 GM/DL (12.0-16.0); Immature Granulocytes % 1.1 %; Immature Granulocytes Absolute 0.14 #; Lymphocytes # 0.5 10*3/uL (1.4-4.0); Lymphocytes % 3.9 % (21.3-54.2); Mean Corpuscular HGB Conc 32.5 GM/DL (32-36); Mean Corpuscular Hemoglobin 30 PG (27-34); Mean Corpuscular Volume 93.5 FL (87-102); Monocytes # 0.2 10*3/uL (0.11-0.8); Monocytes % 1.8 % (1.7-12.7); Neutrophils # 12.2 10*3/uL (1.4-7.4); Platelet Count 247 T/CUMM (130-400); Red Blood Count 3.09 MC/CUMM (3.8-5.5); Red Cell Distribution Width 14.8 % (9.3-17.3); White Blood Count 13.1 T/CUMM (4-12)
[2017-11-30 05:01] LABS: Alanine Aminotransferase < 9 U/L (13-56); Albumin 2.3 G/DL (3.4-5.0); Alkaline Phosphatase 61 U/L (45-117); Aspartate Amino Transferase 41 U/L (0-37); Blood Urea Nitrogen 43 MG/DL (7-18); Calcium 8.5 MG/DL (8.5-10.1); Glucose 77 MG/DL (74-106); Osmolality,Calculated 288.4 MOS/KG (273-304); Potassium 4.3 MMOL/L (3.5-5.1); Sodium 140 MMOL/L (136-145); Total Protein 6.4 G/DL (6.4-8.3)
[2017-11-30 05:03] LABS: Band Neutrophils 1 % (0-10); Hypochromasia 1+; Lymphocytes 6 % (20-55); Platelet Estimate Adequate; Segmented Neutrophils 92 % (50-85); Total Cells Counted 100
[2017-11-30] MEDS: hydrOXYzine HCL 25 MG TABLET PO PRN (05:09)
[2017-11-30] MEDS: IPRATROPIUM 500 MCG/2.5 ML NEB RESP TX SCH ×4 (07:00→18:59)
[2017-11-30] MEDS: APIXABAN 2.5 MG TABLET PO SCH ×2 (08:02→21:07)
[2017-11-30] MEDS: amLODIPine 5 MG TABLET PO SCH (08:02)
[2017-11-30] MEDS: SERTRALINE 25 MG TABLET PO SCH (08:02)
[2017-11-30] MEDS: DONEPEZIL 5 MG TABLET PO SCH (08:04)
[2017-11-30] MEDS: GABAPENTIN 100 MG CAPSULE PO SCH ×2 (08:06→21:07)
[2017-11-30] MEDS: PANTOPRAZOLE 40 MG TABLET PO SCH (08:06)
[2017-11-30] MEDS: CALCIUM (CITRATE)/VITAMIN D 200 MG-125 UNIT TABLET PO SCH ×2 (08:20→21:07)
[2017-11-30] MEDS: MULTIVITAMIN (CENTRUM) TABLET PO SCH (08:20)
[2017-11-30] MEDS: ASPIRIN EC 81 MG TABLET PO SCH (08:20)
[2017-11-30] MEDS: FLUTICASONE/SALMETEROL 100-50 DISKUS 14 DOSE INH SCH ×2 (08:20→21:07)
[2017-11-30] MEDS: DOCUSATE SODIUM 100 MG CAPSULE PO SCH ×2 (08:21→21:07)
[2017-11-30] MEDS ORDERED: CLINDAMYCIN 150 MG CAPSULE PO SCH (08:30)
[2017-11-30] MEDS: FERROUS SULFATE 325 MG TABLET PO SCH (08:48)
[2017-11-30] MEDS: FOLIC ACID 1 MG TABLET PO SCH (08:48)
[2017-11-30] MEDS: BACITRACIN OINT 0.9 GM PACK TOP SCH (10:06)
[2017-11-30] MEDS: ZINC OXIDE PASTE 113 GM TUBE TOP SCH ×2 (10:06→21:08)
[2017-11-30] MEDS ORDERED: HYDROCORTISONE 100 MG VIAL IV ONE (13:55)
[2017-11-30] MEDS ORDERED: diphenhydrAMINE 50 MG/1 ML VIAL IV PRN (15:00)
[2017-11-30] MEDS: MORPHINE 4 MG/1 ML VIAL IV PRN (18:09)
[2017-11-30] MEDS: LINEZOLID INJ 600 MG in PREMIX 1 EACH IV SCH (18:18)
[2017-12-01] MEDS: LINEZOLID INJ 600 MG in PREMIX 1 EACH IV SCH ×2 (02:53→15:17)
[2017-12-01] MEDS: methylPREDNISolone SOD SUC 40 MG/1 ML VIAL IV SCH ×3 (02:54→19:51)
[2017-12-01 06:19] LABS: Basophils % 0.1 % (0.0-0.8); Hematocrit 27.8 VOL% (35.7-47.0); Hemoglobin 9.2 GM/DL (12.0-16.0); Immature Granulocytes Absolute 0.11 #; Lymphocytes # 0.5 10*3/uL (1.4-4.0); Lymphocytes % 4.5 % (21.3-54.2); Mean Corpuscular HGB Conc 33.1 GM/DL (32-36); Mean Corpuscular Hemoglobin 31 PG (27-34); Mean Platelet Volume 10.4 FL (9.6-12.0); Monocytes # 0.3 10*3/uL (0.11-0.8); Monocytes % 2.6 % (1.7-12.7); Neutrophils # 10.1 10*3/uL (1.4-7.4); Neutrophils % 91.8 % (38.7-73.9); Platelet Count 286 T/CUMM (130-400); Red Blood Count 2.99 MC/CUMM (3.8-5.5); Red Cell Distribution Width 14.5 % (9.3-17.3)
[2017-12-01 06:33] LABS: Calcium 8.3 MG/DL (8.5-10.1); Osmolality,Calculated 288.8 MOS/KG (273-304); Potassium 3.8 MMOL/L (3.5-5.1)
[2017-12-01 06:48] LABS: Hypochromasia Slight; Lymphocytes 3 % (20-55); Platelet Estimate Normal; Polychromasia Few; Segmented Neutrophils 97 % (50-85); Total Cells Counted 100
[2017-12-01] MEDS: IPRATROPIUM 500 MCG/2.5 ML NEB RESP TX SCH ×4 (07:06→18:56)
[2017-12-01] MEDS: ZINC OXIDE PASTE 113 GM TUBE TOP SCH ×2 (07:45→20:51)
[2017-12-01] MEDS: CALCIUM (CITRATE)/VITAMIN D 200 MG-125 UNIT TABLET PO SCH ×2 (10:15→20:51)
[2017-12-01] MEDS: APIXABAN 2.5 MG TABLET PO SCH ×2 (10:16→20:51)
[2017-12-01] MEDS: SERTRALINE 25 MG TABLET PO SCH (10:16)
[2017-12-01] MEDS: PANTOPRAZOLE 40 MG TABLET PO SCH (10:17)
[2017-12-01] MEDS: DONEPEZIL 5 MG TABLET PO SCH (10:17)
[2017-12-01] MEDS: FOLIC ACID 1 MG TABLET PO SCH (10:19)
[2017-12-01] MEDS: MULTIVITAMIN (CENTRUM) TABLET PO SCH (10:19)
[2017-12-01] MEDS: ASPIRIN EC 81 MG TABLET PO SCH (10:19)
[2017-12-01] MEDS: DOCUSATE SODIUM 100 MG CAPSULE PO SCH ×2 (10:19→20:51)
[2017-12-01] MEDS: GABAPENTIN 100 MG CAPSULE PO SCH ×2 (10:19→20:51)
[2017-12-01] MEDS: amLODIPine 5 MG TABLET PO SCH (10:19)
[2017-12-01] MEDS: FERROUS SULFATE 325 MG TABLET PO SCH (10:19)
[2017-12-01] MEDS: FLUTICASONE/SALMETEROL 100-50 DISKUS 14 DOSE INH SCH ×2 (10:33→20:51)
[2017-12-01] MEDS: SODIUM CHLORIDE 0.9% 1,000 ML IV SCH ×2 (15:16→19:00)
[2017-12-01] MEDS: BACITRACIN OINT 0.9 GM PACK TOP SCH (18:46)
[2017-12-02] MEDS: methylPREDNISolone SOD SUC 40 MG/1 ML VIAL IV SCH ×3 (03:00→18:26)
[2017-12-02] MEDS: LINEZOLID INJ 600 MG in PREMIX 1 EACH IV SCH ×2 (03:10→16:13)
[2017-12-02 05:25] LABS: Basophils % 0.1 % (0.0-0.8); Hematocrit 27.2 VOL% (35.7-47.0); Hemoglobin 8.6 GM/DL (12.0-16.0); Immature Granulocytes % 1.5 %; Immature Granulocytes Absolute 0.18 #; Lymphocytes # 0.7 10*3/uL (1.4-4.0); Lymphocytes % 5.5 % (21.3-54.2); Mean Corpuscular HGB Conc 31.6 GM/DL (32-36); Mean Corpuscular Hemoglobin 30 PG (27-34); Mean Corpuscular Volume 94.4 FL (87-102); Mean Platelet Volume 10.3 FL (9.6-12.0); Monocytes # 0.8 10*3/uL (0.11-0.8); Monocytes % 6.8 % (1.7-12.7); Neutrophils # 10.7 10*3/uL (1.4-7.4); Neutrophils % 86.1 % (38.7-73.9); Platelet Count 297 T/CUMM (130-400); Red Blood Count 2.88 MC/CUMM (3.8-5.5); Red Cell Distribution Width 14.6 % (9.3-17.3); White Blood Count 12.4 T/CUMM (4-12)
[2017-12-02 05:37] LABS: Calcium 8.2 MG/DL (8.5-10.1); Osmolality,Calculated 293.1 MOS/KG (273-304); Potassium 3.7 MMOL/L (3.5-5.1)
[2017-12-02] MEDS: IPRATROPIUM 500 MCG/2.5 ML NEB RESP TX SCH ×4 (06:55→18:50)
[2017-12-02] MEDS: MULTIVITAMIN (CENTRUM) TABLET PO SCH (09:49)
[2017-12-02] MEDS: BACITRACIN OINT 0.9 GM PACK TOP SCH (09:49)
[2017-12-02] MEDS: DOCUSATE SODIUM 100 MG CAPSULE PO SCH ×2 (09:49→20:08)
[2017-12-02] MEDS: APIXABAN 2.5 MG TABLET PO SCH ×2 (09:49→20:08)
[2017-12-02] MEDS: ZINC OXIDE PASTE 113 GM TUBE TOP SCH ×2 (09:49→20:08)
[2017-12-02] MEDS: CALCIUM (CITRATE)/VITAMIN D 200 MG-125 UNIT TABLET PO SCH ×2 (09:49→20:08)
[2017-12-02] MEDS: ASPIRIN EC 81 MG TABLET PO SCH (09:49)
[2017-12-02] MEDS: DONEPEZIL 5 MG TABLET PO SCH (09:49)
[2017-12-02] MEDS: FLUTICASONE/SALMETEROL 100-50 DISKUS 14 DOSE INH SCH ×2 (09:49→20:08)
[2017-12-02] MEDS: amLODIPine 5 MG TABLET PO SCH (09:50)
[2017-12-02] MEDS: FERROUS SULFATE 325 MG TABLET PO SCH (09:50)
[2017-12-02] MEDS: GABAPENTIN 100 MG CAPSULE PO SCH ×2 (09:50→20:08)
[2017-12-02] MEDS: SERTRALINE 25 MG TABLET PO SCH (09:50)
[2017-12-02] MEDS: PANTOPRAZOLE 40 MG TABLET PO SCH (09:50)
[2017-12-02] MEDS: FOLIC ACID 1 MG TABLET PO SCH (09:50)
[2017-12-02] MEDS: FLUCONAZOLE INJ 200 MG in PREMIX 1 EACH IV SCH (13:38)
[2017-12-03] MEDS: SODIUM CHLORIDE 0.9% 1,000 ML IV SCH ×4 (00:15→21:01)
[2017-12-03] MEDS: methylPREDNISolone SOD SUC 40 MG/1 ML VIAL IV SCH ×3 (02:58→18:05)
[2017-12-03 03:47] LABS: Basophils % 0.1 % (0.0-0.8); Eosinophils # 0.1 10*3/uL (0.0-0.87); Eosinophils % 0.7 % (0.00-10.9); Hematocrit 29.4 VOL% (35.7-47.0); Hemoglobin 9.1 GM/DL (12.0-16.0); Immature Granulocytes % 2.8 %; Immature Granulocytes Absolute 0.38 #; Lymphocytes # 1.7 10*3/uL (1.4-4.0); Mean Corpuscular Hemoglobin 30 PG (27-34); Mean Corpuscular Volume 95.8 FL (87-102); Mean Platelet Volume 10.2 FL (9.6-12.0); Monocytes # 1.3 10*3/uL (0.11-0.8); Monocytes % 9.1 % (1.7-12.7); NRBC # 0.02 10*3/uL; Neutrophils # 10.4 10*3/uL (1.4-7.4); Neutrophils % 75.3 % (38.7-73.9); Platelet Count 306 T/CUMM (130-400); Red Blood Count 3.07 MC/CUMM (3.8-5.5); Red Cell Distribution Width 14.8 % (9.3-17.3); White Blood Count 13.8 T/CUMM (4-12)
[2017-12-03 04:09] LABS: Calcium 8.2 MG/DL (8.5-10.1); Potassium 3.5 MMOL/L (3.5-5.1)
[2017-12-03] MEDS: IPRATROPIUM 500 MCG/2.5 ML NEB RESP TX SCH ×4 (07:18→19:32)
[2017-12-03] MEDS: FLUTICASONE/SALMETEROL 100-50 DISKUS 14 DOSE INH SCH ×2 (08:49→21:00)
[2017-12-03] MEDS: DONEPEZIL 5 MG TABLET PO SCH (08:50)
[2017-12-03] MEDS: MULTIVITAMIN (CENTRUM) TABLET PO SCH (08:51)
[2017-12-03] MEDS: ASPIRIN EC 81 MG TABLET PO SCH (08:51)
[2017-12-03] MEDS: BACITRACIN OINT 0.9 GM PACK TOP SCH (08:51)
[2017-12-03] MEDS: CALCIUM (CITRATE)/VITAMIN D 200 MG-125 UNIT TABLET PO SCH ×2 (08:51→21:01)
[2017-12-03] MEDS: APIXABAN 2.5 MG TABLET PO SCH ×2 (08:52→21:02)
[2017-12-03] MEDS: GABAPENTIN 100 MG CAPSULE PO SCH ×2 (08:52→21:02)
[2017-12-03] MEDS: DOCUSATE SODIUM 100 MG CAPSULE PO SCH ×2 (08:52→21:02)
[2017-12-03] MEDS: FERROUS SULFATE 325 MG TABLET PO SCH (08:52)
[2017-12-03] MEDS: amLODIPine 5 MG TABLET PO SCH (08:52)
[2017-12-03] MEDS: ZINC OXIDE PASTE 113 GM TUBE TOP SCH ×2 (08:52→21:02)
[2017-12-03] MEDS: SERTRALINE 25 MG TABLET PO SCH (08:52)
[2017-12-03] MEDS: PANTOPRAZOLE 40 MG TABLET PO SCH (08:52)
[2017-12-03] MEDS: FOLIC ACID 1 MG TABLET PO SCH (08:52)
[2017-12-03] MEDS: FLUCONAZOLE INJ 200 MG in PREMIX 1 EACH IV SCH (09:18)
[2017-12-03] MEDS: LINEZOLID INJ 600 MG in PREMIX 1 EACH IV SCH ×2 (11:33→22:58)
[2017-12-04] MEDS: methylPREDNISolone SOD SUC 40 MG/1 ML VIAL IV SCH ×2 (02:43→10:17)
[2017-12-04 03:59] LABS: Basophils % 0.1 % (0.0-0.8); Hematocrit 29.6 VOL% (35.7-47.0); Hemoglobin 9.5 GM/DL (12.0-16.0); Immature Granulocytes % 2.5 %; Immature Granulocytes Absolute 0.37 #; Lymphocytes # 0.6 10*3/uL (1.4-4.0); Lymphocytes % 3.9 % (21.3-54.2); Mean Corpuscular HGB Conc 32.1 GM/DL (32-36); Mean Corpuscular Hemoglobin 30 PG (27-34); Mean Corpuscular Volume 94.6 FL (87-102); Mean Platelet Volume 10.1 FL (9.6-12.0); Monocytes # 0.4 10*3/uL (0.11-0.8); Monocytes % 2.6 % (1.7-12.7); Neutrophils # 13.6 10*3/uL (1.4-7.4); Neutrophils % 90.9 % (38.7-73.9); Platelet Count 356 T/CUMM (130-400); Red Blood Count 3.13 MC/CUMM (3.8-5.5); White Blood Count 14.9 T/CUMM (4-12)
[2017-12-04 04:21] LABS: Calcium 7.9 MG/DL (8.5-10.1); Osmolality,Calculated 292.1 MOS/KG (273-304); Potassium 3.8 MMOL/L (3.5-5.1)
[2017-12-04 05:13] LABS: Anisocytosis 1+; Band Neutrophils 3 % (0-10); Hypochromasia Slight; Lymphocytes 3 % (20-55); Macrocytosis 1+; Platelet Estimate Normal; Segmented Neutrophils 92 % (50-85); Total Cells Counted 100
[2017-12-04] MEDS: IPRATROPIUM 500 MCG/2.5 ML NEB RESP TX SCH ×2 (06:52→10:55)
[2017-12-04] MEDS: SODIUM CHLORIDE 0.9% 1,000 ML IV SCH ×2 (07:56→10:17)
[2017-12-04] MEDS: PANTOPRAZOLE 40 MG TABLET PO SCH (08:33)
[2017-12-04] MEDS: SERTRALINE 25 MG TABLET PO SCH (08:33)
[2017-12-04] MEDS: FERROUS SULFATE 325 MG TABLET PO SCH (08:34)
[2017-12-04] MEDS: GABAPENTIN 100 MG CAPSULE PO SCH (08:34)
[2017-12-04] MEDS: MULTIVITAMIN (CENTRUM) TABLET PO SCH (08:34)
[2017-12-04] MEDS: APIXABAN 2.5 MG TABLET PO SCH (08:34)
[2017-12-04] MEDS: CALCIUM (CITRATE)/VITAMIN D 200 MG-125 UNIT TABLET PO SCH (08:34)
[2017-12-04] MEDS: FOLIC ACID 1 MG TABLET PO SCH (08:34)
[2017-12-04] MEDS: DONEPEZIL 5 MG TABLET PO SCH (08:35)
[2017-12-04] MEDS: FLUTICASONE/SALMETEROL 100-50 DISKUS 14 DOSE INH SCH (08:35)
[2017-12-04] MEDS: amLODIPine 5 MG TABLET PO SCH (08:35)
[2017-12-04] MEDS: ASPIRIN EC 81 MG TABLET PO SCH (08:35)
[2017-12-04] MEDS: DOCUSATE SODIUM 100 MG CAPSULE PO SCH (08:36)
[2017-12-04] MEDS: ZINC OXIDE PASTE 113 GM TUBE TOP SCH (08:36)
[2017-12-04] MEDS: BACITRACIN OINT 0.9 GM PACK TOP SCH (08:36)
[2017-12-04] MEDS: FLUCONAZOLE INJ 200 MG in PREMIX 1 EACH IV SCH (10:17)
[2017-12-04] MEDS: LINEZOLID INJ 600 MG in PREMIX 1 EACH IV SCH (11:27)
[2017-12-04 12:07] VITALS: BP 146/77
== END 2017-12-04 13:10 | DRG 480 ==
LOC: EDBD → EDUNIT# → N.ED 10:15 → N.EDINP 10:15 → N.3E 12:56 → SUATTDRO 11-28 07:03 → N.ICU 11-28 16:53 → N.3E 11-30 11:28
PROVIDERS: ATTEND Internal Medicine

== ENCOUNTER 2018-02-16 10:01 | Inpatient (IN) ==
[2018-02-16] MEDS ORDERED: DILTIAZEM 25 MG/5 ML VIAL IV ONE (10:21)
[2018-02-16] MEDS ORDERED: NITROGLYCERIN 2% OINT 1 INCH/GM PACK TOP STA (10:23)
[2018-02-16] MEDS ORDERED: FUROSEMIDE 100 MG/10 ML VIAL IV STA (10:23)
[2018-02-16] MEDS ORDERED: MORPHINE 4 MG/1 ML VIAL IV STA (10:24)
[2018-02-16] MEDS ORDERED: DILTIAZEM 50 MG/10 ML VIAL IV STA ×2 (10:25→10:48)
[2018-02-16] MEDS ORDERED: ONDANSETRON 4 MG/2 ML VIAL IV STA (10:25)
[2018-02-16] MEDS ORDERED: FUROSEMIDE 40 MG/4 ML VIAL ONE (10:38)
[2018-02-16 10:42] LABS: Basophils # 0.1 10*3/uL (0.0-0.2); Basophils % 0.4 % (0.0-0.8); Eosinophils % 0.1 % (0.00-10.9); Hematocrit 30.8 VOL% (35.7-47.0); Hemoglobin 9.6 GM/DL (12.0-16.0); Immature Granulocytes % 2.8 %; Immature Granulocytes Absolute 0.42 #; Lymphocytes # 1.3 10*3/uL (1.4-4.0); Lymphocytes % 8.4 % (21.3-54.2); Mean Corpuscular HGB Conc 31.2 GM/DL (32-36); Mean Corpuscular Hemoglobin 30 PG (27-34); Mean Corpuscular Volume 96.6 FL (87-102); Mean Platelet Volume 9.4 FL (9.6-12.0); Monocytes # 1.2 10*3/uL (0.11-0.8); Monocytes % 7.8 % (1.7-12.7); Neutrophils # 12.3 10*3/uL (1.4-7.4); Neutrophils % 80.5 % (38.7-73.9); Platelet Count 571 T/CUMM (130-400); Red Blood Count 3.19 MC/CUMM (3.8-5.5); Red Cell Distribution Width 16.8 % (9.3-17.3); White Blood Count 15.3 T/CUMM (4-12)
[2018-02-16] MEDS: dilTIAZem Drip 125 MG/125 ML PREMIX IV SCH ×2 (10:42→21:15)
[2018-02-16 11:00] LABS: Albumin 2.4 G/DL (3.4-5.0); Bilirubin,Total 0.4 MG/DL (0.2-1.0); Calcium 9.3 MG/DL (8.5-10.1); Osmolality,Calculated 285.4 MOS/KG (273-304); Potassium 4.3 MMOL/L (3.5-5.1); Total Protein 6.6 G/DL (6.4-8.3)
[2018-02-16 11:01] LABS: Anisocytosis 1+; Band Neutrophils 47 % (0-10); Lymphocytes 12 % (20-55); Macrocytosis 1+; Platelet Estimate Increased; Segmented Neutrophils 33 % (50-85); Total Cells Counted 100
[2018-02-16] MEDS ORDERED: MEROPENEM 1,000 MG in SODIUM CHLORIDE 0.9% 100 ML IV STA (11:08)
[2018-02-16] MEDS ORDERED: METOPROLOL TARTRATE 5 MG/5 ML VIAL IV ONE (11:53)
[2018-02-16] MEDS ORDERED: METOPROLOL TARTRATE 5 MG/5 ML VIAL IV STA (11:55)
[2018-02-16] MEDS ORDERED: ACETAMINOPHEN 325 MG TABLET PO PRN ×2 (12:04→12:10)
[2018-02-16] MEDS ORDERED: ONDANSETRON 4 MG/2 ML VIAL IV PRN (12:04)
[2018-02-16] MEDS ORDERED: ALBUTEROL 2.5 MG/3 ML NEB RESP TX PRN (12:04)
[2018-02-16] MEDS ORDERED: ALBUTEROL/IPRATROPIUM 3 ML NEB RESP TX PRN (12:10)
[2018-02-16] MEDS ORDERED: diphenhydrAMINE CAP 25 MG CAPSULE PO PRN (12:10)
[2018-02-16] MEDS ORDERED: guaiFENesin 200 MG/10 ML UDCUP PO PRN (12:10)
[2018-02-16 12:26] LABS: Amorphous Crystals,Urine Occasional /HPF (Few); Apearance,Urine CLOUDY (Clear); Bilirubin,Urine Negative (Negative); Blood, Urine Small mg/dL (Negative); Glucose,Urine (UA) Negative (Negative); Ketones,Urine Negative (Negative); Nitrite,Urine Negative (Negative); Protein,Urine Negative; RBC,Urine <1 /HPF (0-4); Squamous Epithelial Cell,Urine Occasional /HPF (0-10); Urine Color Yellow (Yellow); Urine Specific Gravity 1.009 (1.001-1.035); Urine Urobilinogen < 2.0 EU/DL (0.2-1.0); WBC,Urine <1 /HPF (0-6)
[2018-02-16] MEDS ORDERED: INFLUENZA VIRUS VACCINE 0.5 ML SYRINGE IM ONE (14:29)
[2018-02-16] MEDS: MEROPENEM 500 MG in SODIUM CHLORIDE 0.9% 100 ML IV SCH (14:57)
[2018-02-16] MEDS: FUROSEMIDE 40 MG/4 ML VIAL IV SCH (16:37)
[2018-02-16] MEDS: IPRATROPIUM 500 MCG/2.5 ML NEB RESP TX SCH (19:30)
[2018-02-16] MEDS: CALCIUM (CARBONATE)/VITAMIN D 600 MG-400 UNIT TABLET PO SCH (20:40)
[2018-02-16] MEDS: MEGESTROL 400 MG/10 ML UDCUP PO SCH (20:40)
[2018-02-16] MEDS: GABAPENTIN 100 MG CAPSULE PO SCH (20:40)
[2018-02-16] MEDS: APIXABAN 2.5 MG TABLET PO SCH (20:41)
[2018-02-16] MEDS: FLUTICASONE/SALMETEROL 100-50 DISKUS 14 DOSE INH SCH (20:41)
[2018-02-16] MEDS: METOPROLOL TARTRATE 25 MG TABLET PO SCH (20:41)
[2018-02-17] LABS: Troponin I 0.024 NG/ML (0.00-0.045)
[2018-02-17] MEDS: MEROPENEM 500 MG in SODIUM CHLORIDE 0.9% 100 ML IV SCH ×2 (01:46→15:40)
[2018-02-17 05:33] LABS: Basophils % 0.3 % (0.0-0.8); Eosinophils # 0.1 10*3/uL (0.0-0.87); Eosinophils % 0.5 % (0.00-10.9); Hematocrit 24.9 VOL% (35.7-47.0); Hemoglobin 7.8 GM/DL (12.0-16.0); Immature Granulocytes % 5.2 %; Lymphocytes # 0.9 10*3/uL (1.4-4.0); Lymphocytes % 5.6 % (21.3-54.2); Mean Corpuscular HGB Conc 31.3 GM/DL (32-36); Mean Corpuscular Hemoglobin 30 PG (27-34); Mean Corpuscular Volume 96.1 FL (87-102); Mean Platelet Volume 9.6 FL (9.6-12.0); Monocytes # 0.8 10*3/uL (0.11-0.8); Monocytes % 5.5 % (1.7-12.7); Neutrophils # 12.7 10*3/uL (1.4-7.4); Neutrophils % 82.9 % (38.7-73.9); Platelet Count 461 T/CUMM (130-400); Red Blood Count 2.59 MC/CUMM (3.8-5.5); Red Cell Distribution Width 16.7 % (9.3-17.3); White Blood Count 15.3 T/CUMM (4-12)
[2018-02-17 05:59] LABS: Calcium 9.2 MG/DL (8.5-10.1)
[2018-02-17 06:00] LABS: Osmolality,Calculated 284.5 MOS/KG (273-304); Potassium 3.9 MMOL/L (3.5-5.1)
[2018-02-17 06:05] LABS: Albumin 1.9 G/DL (3.4-5.0); Bilirubin,Total 0.6 MG/DL (0.2-1.0); Calcium 9.1 MG/DL (8.5-10.1); Osmolality,Calculated 284.5 MOS/KG (273-304); Potassium 3.9 MMOL/L (3.5-5.1); Total Protein 6.4 G/DL (6.4-8.3)
[2018-02-17 06:10] LABS: Hypochromasia 1+; Lymphocytes 6 % (20-55); Microcytosis 1+; Platelet Estimate Normal; Polychromasia Few; Segmented Neutrophils 92 % (50-85); Target Cells Few; Total Cells Counted 100
[2018-02-17] MEDS: IPRATROPIUM 500 MCG/2.5 ML NEB RESP TX SCH ×2 (07:24→19:58)
[2018-02-17] MEDS: ASPIRIN EC 81 MG TABLET PO SCH (08:14)
[2018-02-17] MEDS: CALCIUM (CARBONATE)/VITAMIN D 600 MG-400 UNIT TABLET PO SCH ×2 (08:14→20:15)
[2018-02-17] MEDS: ASCORBIC ACID 500 MG TABLET PO SCH (08:14)
[2018-02-17] MEDS: risperiDONE 0.25 MG TABLET PO SCH (08:15)
[2018-02-17] MEDS: ZINC SULFATE 220 MG CAPSULE PO SCH (08:15)
[2018-02-17] MEDS: SERTRALINE 25 MG TABLET PO SCH (08:15)
[2018-02-17] MEDS: APIXABAN 2.5 MG TABLET PO SCH ×2 (08:15→20:16)
[2018-02-17] MEDS: MULTIVITAMIN (CENTRUM) TABLET PO SCH (08:15)
[2018-02-17] MEDS: FOLIC ACID 1 MG TABLET PO SCH (08:15)
[2018-02-17] MEDS: PANTOPRAZOLE 40 MG TABLET PO SCH (08:15)
[2018-02-17] MEDS: MEGESTROL 400 MG/10 ML UDCUP PO SCH ×2 (08:15→20:51)
[2018-02-17] MEDS: FERROUS SULFATE 325 MG TABLET PO SCH (08:15)
[2018-02-17] MEDS: DONEPEZIL 5 MG TABLET PO SCH (08:15)
[2018-02-17] MEDS: METOPROLOL TARTRATE 25 MG TABLET PO SCH ×2 (08:15→20:15)
[2018-02-17] MEDS: LORATADINE 10 MG TABLET PO SCH (08:15)
[2018-02-17] MEDS: GABAPENTIN 100 MG CAPSULE PO SCH ×2 (08:15→20:16)
[2018-02-17] MEDS: FUROSEMIDE 40 MG/4 ML VIAL IV SCH ×2 (08:16→16:22)
[2018-02-17] MEDS: FLUTICASONE/SALMETEROL 100-50 DISKUS 14 DOSE INH SCH ×2 (08:22→20:17)
[2018-02-17] MEDS ORDERED: PANTOPRAZOLE 40 MG TABLET PO SCH (09:00)
[2018-02-17] MEDS ORDERED: amLODIPine 5 MG TABLET PO SCH (09:00)
[2018-02-17] MEDS: dilTIAZem Drip 125 MG/125 ML PREMIX IV SCH (20:18)
[2018-02-18] MEDS: MEROPENEM 500 MG in SODIUM CHLORIDE 0.9% 100 ML IV SCH ×2 (01:10→15:08)
[2018-02-18 04:36] LABS: Basophils % 0.2 % (0.0-0.8); Eosinophils # 0.2 10*3/uL (0.0-0.87); Eosinophils % 1.1 % (0.00-10.9); Hematocrit 23.4 VOL% (35.7-47.0); Hemoglobin 7.2 GM/DL (12.0-16.0); Immature Granulocytes % 7.8 %; Immature Granulocytes Absolute 1.45 #; Lymphocytes # 1.3 10*3/uL (1.4-4.0); Lymphocytes % 6.7 % (21.3-54.2); Mean Corpuscular HGB Conc 30.8 GM/DL (32-36); Mean Corpuscular Hemoglobin 29 PG (27-34); Mean Corpuscular Volume 95.1 FL (87-102); Mean Platelet Volume 9.8 FL (9.6-12.0); Monocytes # 0.9 10*3/uL (0.11-0.8); Monocytes % 4.6 % (1.7-12.7); Neutrophils # 14.9 10*3/uL (1.4-7.4); Neutrophils % 79.6 % (38.7-73.9); Platelet Count 455 T/CUMM (130-400); Red Blood Count 2.46 MC/CUMM (3.8-5.5); Red Cell Distribution Width 16.8 % (9.3-17.3); White Blood Count 18.7 T/CUMM (4-12)
[2018-02-18 05:05] LABS: Alanine Aminotransferase 13 U/L (13-56); Albumin 1.7 G/DL (3.4-5.0); Alkaline Phosphatase 81 U/L (45-117); Aspartate Amino Transferase 16 U/L (0-37); Bilirubin,Total < 0.39 MG/DL (0.2-1.0); Blood Urea Nitrogen 48 MG/DL (7-18); Calcium 8.7 MG/DL (8.5-10.1); Glucose 80 MG/DL (74-106); Osmolality,Calculated 288.5 MOS/KG (273-304); Potassium 4.5 MMOL/L (3.5-5.1); Sodium 139 MMOL/L (136-145); Total Protein 6.1 G/DL (6.4-8.3)
[2018-02-18 05:28] LABS: Band Neutrophils 4 % (0-10); Lymphocytes 7 % (20-55); Myelocytes 1 %; Segmented Neutrophils 81 % (50-85); Total Cells Counted 100
[2018-02-18 05:29] LABS: Anisocytosis 1+; Hypochromasia 1+; Target Cells 1+
[2018-02-18 05:30] LABS: Platelet Estimate Adequate
[2018-02-18] MEDS: IPRATROPIUM 500 MCG/2.5 ML NEB RESP TX SCH ×2 (06:47→19:45)
[2018-02-18] MEDS: FUROSEMIDE 40 MG/4 ML VIAL IV SCH (09:01)
[2018-02-18] MEDS: METOPROLOL TARTRATE 25 MG TABLET PO SCH ×2 (09:03→20:18)
[2018-02-18] MEDS: PANTOPRAZOLE 40 MG TABLET PO SCH (09:04)
[2018-02-18] MEDS: MULTIVITAMIN (CENTRUM) TABLET PO SCH (09:04)
[2018-02-18] MEDS: APIXABAN 2.5 MG TABLET PO SCH ×2 (09:04→20:18)
[2018-02-18] MEDS: GABAPENTIN 100 MG CAPSULE PO SCH ×2 (09:05→20:18)
[2018-02-18] MEDS: MEGESTROL 400 MG/10 ML UDCUP PO SCH ×2 (09:05→20:18)
[2018-02-18] MEDS: ASCORBIC ACID 500 MG TABLET PO SCH (09:06)
[2018-02-18] MEDS: FOLIC ACID 1 MG TABLET PO SCH (09:06)
[2018-02-18] MEDS: ASPIRIN EC 81 MG TABLET PO SCH (09:06)
[2018-02-18] MEDS: risperiDONE 0.25 MG TABLET PO SCH (09:10)
[2018-02-18] MEDS: DONEPEZIL 5 MG TABLET PO SCH (09:10)
[2018-02-18] MEDS: CALCIUM (CARBONATE)/VITAMIN D 600 MG-400 UNIT TABLET PO SCH ×2 (09:11→20:18)
[2018-02-18] MEDS: FERROUS SULFATE 325 MG TABLET PO SCH (09:11)
[2018-02-18] MEDS: FLUTICASONE/SALMETEROL 100-50 DISKUS 14 DOSE INH SCH ×2 (09:16→20:18)
[2018-02-18] MEDS: LORATADINE 10 MG TABLET PO SCH (11:05)
[2018-02-18] MEDS: SERTRALINE 25 MG TABLET PO SCH (11:06)
[2018-02-18] MEDS: ZINC SULFATE 220 MG CAPSULE PO SCH (11:06)
[2018-02-18] MEDS: dilTIAZem Drip 125 MG/125 ML PREMIX IV SCH (11:20)
[2018-02-19] MEDS: MEROPENEM 500 MG in SODIUM CHLORIDE 0.9% 100 ML IV SCH ×2 (03:00→15:19)
[2018-02-19 05:42] LABS: Basophils # 0.1 10*3/uL (0.0-0.2); Basophils % 0.4 % (0.0-0.8); Eosinophils # 0.3 10*3/uL (0.0-0.87); Eosinophils % 1.1 % (0.00-10.9); Hematocrit 24.2 VOL% (35.7-47.0); Hemoglobin 7.8 GM/DL (12.0-16.0); Immature Granulocytes % 10.2 %; Immature Granulocytes Absolute 2.29 #; Lymphocytes # 1.7 10*3/uL (1.4-4.0); Lymphocytes % 7.5 % (21.3-54.2); Mean Corpuscular HGB Conc 32.2 GM/DL (32-36); Mean Corpuscular Hemoglobin 31 PG (27-34); Mean Corpuscular Volume 95.7 FL (87-102); Mean Platelet Volume 9.8 FL (9.6-12.0); Monocytes # 0.8 10*3/uL (0.11-0.8); Monocytes % 3.3 % (1.7-12.7); Neutrophils # 17.5 10*3/uL (1.4-7.4); Neutrophils % 77.5 % (38.7-73.9); Platelet Count 471 T/CUMM (130-400); Red Blood Count 2.53 MC/CUMM (3.8-5.5); Red Cell Distribution Width 16.9 % (9.3-17.3); White Blood Count 22.5 T/CUMM (4-12)
[2018-02-19 06:06] LABS: Calcium 9.1 MG/DL (8.5-10.1); Potassium 4.2 MMOL/L (3.5-5.1)
[2018-02-19 06:39] LABS: Band Neutrophils 3 % (0-10); Eosinophils 1 % (0-10); Hypochromasia 1+; Lymphocytes 10 % (20-55); Metamyelocytes 1 %; Segmented Neutrophils 85 % (50-85); Total Cells Counted 100
[2018-02-19 06:40] LABS: Microcytosis 1+
[2018-02-19] MEDS: FUROSEMIDE 40 MG/4 ML VIAL IV SCH (08:17)
[2018-02-19] MEDS: METOPROLOL TARTRATE 25 MG TABLET PO SCH ×2 (08:18→20:46)
[2018-02-19] MEDS: CALCIUM (CARBONATE)/VITAMIN D 600 MG-400 UNIT TABLET PO SCH ×2 (08:18→20:45)
[2018-02-19] MEDS: FOLIC ACID 1 MG TABLET PO SCH (08:18)
[2018-02-19] MEDS: risperiDONE 0.25 MG TABLET PO SCH (08:18)
[2018-02-19] MEDS: ASPIRIN EC 81 MG TABLET PO SCH (08:18)
[2018-02-19] MEDS: DONEPEZIL 5 MG TABLET PO SCH (08:19)
[2018-02-19] MEDS: APIXABAN 2.5 MG TABLET PO SCH ×2 (08:19→20:45)
[2018-02-19] MEDS: ZINC SULFATE 220 MG CAPSULE PO SCH (08:19)
[2018-02-19] MEDS: FERROUS SULFATE 325 MG TABLET PO SCH (08:19)
[2018-02-19] MEDS: MULTIVITAMIN (CENTRUM) TABLET PO SCH (08:19)
[2018-02-19] MEDS: LORATADINE 10 MG TABLET PO SCH (08:20)
[2018-02-19] MEDS: GABAPENTIN 100 MG CAPSULE PO SCH ×2 (08:29→20:46)
[2018-02-19] MEDS: MEGESTROL 400 MG/10 ML UDCUP PO SCH ×2 (08:29→20:46)
[2018-02-19] MEDS: FLUTICASONE/SALMETEROL 100-50 DISKUS 14 DOSE INH SCH ×2 (08:29→20:46)
[2018-02-19] MEDS: ASCORBIC ACID 500 MG TABLET PO SCH (08:30)
[2018-02-19] MEDS: SERTRALINE 25 MG TABLET PO SCH (08:30)
[2018-02-19] MEDS: PANTOPRAZOLE 40 MG TABLET PO SCH (08:30)
[2018-02-19] MEDS: IPRATROPIUM 500 MCG/2.5 ML NEB RESP TX SCH ×2 (08:35→20:03)
[2018-02-19] MEDS: SKIN HEALING OINT (AQUAPHOR) 50 GM TUBE TOP SCH (15:20)
[2018-02-20] MEDS: MEROPENEM 500 MG in SODIUM CHLORIDE 0.9% 100 ML IV SCH (02:32)
[2018-02-20 06:16] LABS: Calcium 9.2 MG/DL (8.5-10.1); Osmolality,Calculated 287.5 MOS/KG (273-304)
[2018-02-20] MEDS: IPRATROPIUM 500 MCG/2.5 ML NEB RESP TX SCH ×2 (07:17→20:06)
[2018-02-20 07:25] LABS: Basophils # 0.1 10*3/uL (0.0-0.2); Basophils % 0.3 % (0.0-0.8); Eosinophils # 0.2 10*3/uL (0.0-0.87); Eosinophils % 1.1 % (0.00-10.9); Hematocrit 25.3 VOL% (35.7-47.0); Hemoglobin 8.1 GM/DL (12.0-16.0); Immature Granulocytes Absolute 2.97 #; Lymphocytes # 1.7 10*3/uL (1.4-4.0); Lymphocytes % 7.4 % (21.3-54.2); Mean Corpuscular Hemoglobin 30 PG (27-34); Mean Platelet Volume 9.5 FL (9.6-12.0); Monocytes # 0.8 10*3/uL (0.11-0.8); Monocytes % 3.4 % (1.7-12.7); Neutrophils % 74.8 % (38.7-73.9); Platelet Count 477 T/CUMM (130-400); Red Blood Count 2.72 MC/CUMM (3.8-5.5); White Blood Count 22.8 T/CUMM (4-12)
[2018-02-20 07:30] LABS: Platelet Estimate Normal; Target Cells Few
[2018-02-20 07:31] LABS: Anisocytosis 1+; Polychromasia Slight
[2018-02-20 07:41] LABS: Band Neutrophils 11 % (0-10); Eosinophils 2 % (0-10); Lymphocytes 8 % (20-55); Segmented Neutrophils 73 % (50-85); Total Cells Counted 100
[2018-02-20] MEDS: SKIN HEALING OINT (AQUAPHOR) 50 GM TUBE TOP SCH (08:38)
[2018-02-20] MEDS: METOPROLOL TARTRATE 25 MG TABLET PO SCH ×2 (08:38→19:37)
[2018-02-20] MEDS: CEFUROXIME 250 MG TABLET PO SCH ×2 (08:38→20:26)
[2018-02-20] MEDS: PANTOPRAZOLE 40 MG TABLET PO SCH (08:38)
[2018-02-20] MEDS: FUROSEMIDE 40 MG/4 ML VIAL IV SCH (08:38)
[2018-02-20] MEDS: risperiDONE 0.25 MG TABLET PO SCH (08:38)
[2018-02-20] MEDS: APIXABAN 2.5 MG TABLET PO SCH ×2 (08:38→20:25)
[2018-02-20] MEDS: GABAPENTIN 100 MG CAPSULE PO SCH ×2 (08:38→20:25)
[2018-02-20] MEDS: ASPIRIN EC 81 MG TABLET PO SCH (08:38)
[2018-02-20] MEDS: SERTRALINE 25 MG TABLET PO SCH (08:38)
[2018-02-20] MEDS: CALCIUM (CARBONATE)/VITAMIN D 600 MG-400 UNIT TABLET PO SCH ×2 (08:45→20:25)
[2018-02-20] MEDS: FLUTICASONE/SALMETEROL 100-50 DISKUS 14 DOSE INH SCH ×2 (08:45→20:25)
[2018-02-20] MEDS: FOLIC ACID 1 MG TABLET PO SCH (08:46)
[2018-02-20] MEDS: MEGESTROL 400 MG/10 ML UDCUP PO SCH ×2 (08:46→20:25)
[2018-02-20] MEDS: FERROUS SULFATE 325 MG TABLET PO SCH (08:46)
[2018-02-20] MEDS: MULTIVITAMIN (CENTRUM) TABLET PO SCH (08:46)
[2018-02-20] MEDS: ASCORBIC ACID 500 MG TABLET PO SCH (08:46)
[2018-02-20] MEDS: LORATADINE 10 MG TABLET PO SCH (08:46)
[2018-02-20] MEDS: ZINC SULFATE 220 MG CAPSULE PO SCH (08:46)
[2018-02-20] MEDS: DONEPEZIL 5 MG TABLET PO SCH (08:52)
[2018-02-21 04:51] LABS: Basophils # 0.1 10*3/uL (0.0-0.2); Basophils % 0.3 % (0.0-0.8); Eosinophils # 0.1 10*3/uL (0.0-0.87); Eosinophils % 0.4 % (0.00-10.9); Hematocrit 26.6 VOL% (35.7-47.0); Hemoglobin 8.2 GM/DL (12.0-16.0); Immature Granulocytes % 11.9 %; Immature Granulocytes Absolute 2.51 #; Lymphocytes # 0.8 10*3/uL (1.4-4.0); Lymphocytes % 3.6 % (21.3-54.2); Mean Corpuscular HGB Conc 30.8 GM/DL (32-36); Mean Corpuscular Hemoglobin 29 PG (27-34); Mean Corpuscular Volume 94.7 FL (87-102); Mean Platelet Volume 9.5 FL (9.6-12.0); Monocytes # 0.6 10*3/uL (0.11-0.8); Neutrophils % 80.8 % (38.7-73.9); Platelet Count 452 T/CUMM (130-400); Red Blood Count 2.81 MC/CUMM (3.8-5.5); Red Cell Distribution Width 16.8 % (9.3-17.3)
[2018-02-21 05:10] LABS: Calcium 9.3 MG/DL (8.5-10.1); Osmolality,Calculated 286.5 MOS/KG (273-304); Potassium 4.3 MMOL/L (3.5-5.1)
[2018-02-21 05:57] LABS: Band Neutrophils 1 % (0-10); Hypochromasia 1+; Lymphocytes 4 % (20-55); Microcytosis 1+; Platelet Estimate Normal; Polychromasia Few; Segmented Neutrophils 90 % (50-85); Total Cells Counted 100
[2018-02-21] MEDS: IPRATROPIUM 500 MCG/2.5 ML NEB RESP TX SCH ×2 (07:20→20:21)
[2018-02-21] MEDS: SERTRALINE 25 MG TABLET PO SCH (08:39)
[2018-02-21] MEDS: GABAPENTIN 100 MG CAPSULE PO SCH ×2 (08:39→22:40)
[2018-02-21] MEDS: PANTOPRAZOLE 40 MG TABLET PO SCH (08:39)
[2018-02-21] MEDS: METOPROLOL TARTRATE 25 MG TABLET PO SCH ×2 (08:39→22:41)
[2018-02-21] MEDS: FERROUS SULFATE 325 MG TABLET PO SCH (08:39)
[2018-02-21] MEDS: APIXABAN 2.5 MG TABLET PO SCH ×2 (08:39→22:31)
[2018-02-21] MEDS: MEGESTROL 400 MG/10 ML UDCUP PO SCH ×2 (08:40→22:32)
[2018-02-21] MEDS: DONEPEZIL 5 MG TABLET PO SCH (08:40)
[2018-02-21] MEDS: FUROSEMIDE 40 MG/4 ML VIAL IV SCH (08:40)
[2018-02-21] MEDS: MULTIVITAMIN (CENTRUM) TABLET PO SCH (08:40)
[2018-02-21] MEDS: CEFUROXIME 250 MG TABLET PO SCH ×2 (08:40→22:37)
[2018-02-21] MEDS: CALCIUM (CARBONATE)/VITAMIN D 600 MG-400 UNIT TABLET PO SCH ×2 (08:40→22:31)
[2018-02-21] MEDS: ASPIRIN EC 81 MG TABLET PO SCH (08:40)
[2018-02-21] MEDS: ZINC SULFATE 220 MG CAPSULE PO SCH (08:40)
[2018-02-21] MEDS: ASCORBIC ACID 500 MG TABLET PO SCH (08:40)
[2018-02-21] MEDS: FOLIC ACID 1 MG TABLET PO SCH (08:40)
[2018-02-21] MEDS: FLUTICASONE/SALMETEROL 100-50 DISKUS 14 DOSE INH SCH ×2 (12:33→23:32)
[2018-02-21] MEDS: SKIN HEALING OINT (AQUAPHOR) 50 GM TUBE TOP SCH (17:08)
[2018-02-21] MEDS: risperiDONE 0.25 MG TABLET PO SCH (17:09)
[2018-02-21] MEDS: LORATADINE 10 MG TABLET PO SCH (17:09)
[2018-02-22 05:53] LABS: Basophils % 0.3 % (0.0-0.8); Eosinophils # 0.2 10*3/uL (0.0-0.87); Eosinophils % 1.1 % (0.00-10.9); Hematocrit 26.7 VOL% (35.7-47.0); Hemoglobin 8.3 GM/DL (12.0-16.0); Immature Granulocytes % 11.3 %; Immature Granulocytes Absolute 1.58 #; Lymphocytes % 7.2 % (21.3-54.2); Mean Corpuscular HGB Conc 31.1 GM/DL (32-36); Mean Corpuscular Hemoglobin 30 PG (27-34); Mean Corpuscular Volume 96.4 FL (87-102); Mean Platelet Volume 9.3 FL (9.6-12.0); Monocytes # 0.7 10*3/uL (0.11-0.8); Monocytes % 5.3 % (1.7-12.7); Neutrophils # 10.5 10*3/uL (1.4-7.4); Neutrophils % 74.8 % (38.7-73.9); Platelet Count 406 T/CUMM (130-400); Red Blood Count 2.77 MC/CUMM (3.8-5.5); Red Cell Distribution Width 16.5 % (9.3-17.3)
[2018-02-22 06:24] LABS: Calcium 8.8 MG/DL (8.5-10.1); Osmolality,Calculated 287.4 MOS/KG (273-304); Potassium 3.8 MMOL/L (3.5-5.1)
[2018-02-22 06:30] LABS: Lymphocytes 5 % (20-55); Segmented Neutrophils 88 % (50-85); Total Cells Counted 100
[2018-02-22 06:31] LABS: Hypochromasia 1+
[2018-02-22 06:32] LABS: Macrocytosis 1+; Platelet Estimate Increased
[2018-02-22] MEDS: IPRATROPIUM 500 MCG/2.5 ML NEB RESP TX SCH (07:26)
[2018-02-22] MEDS: ZINC SULFATE 220 MG CAPSULE PO SCH (08:40)
[2018-02-22] MEDS: SERTRALINE 25 MG TABLET PO SCH (08:40)
[2018-02-22] MEDS: DONEPEZIL 5 MG TABLET PO SCH (08:40)
[2018-02-22] MEDS: APIXABAN 2.5 MG TABLET PO SCH (08:40)
[2018-02-22] MEDS: METOPROLOL TARTRATE 25 MG TABLET PO SCH (08:40)
[2018-02-22] MEDS: CEFUROXIME 250 MG TABLET PO SCH (08:41)
[2018-02-22] MEDS: ASCORBIC ACID 500 MG TABLET PO SCH (08:41)
[2018-02-22] MEDS: FOLIC ACID 1 MG TABLET PO SCH (08:41)
[2018-02-22] MEDS: MULTIVITAMIN (CENTRUM) TABLET PO SCH (08:41)
[2018-02-22] MEDS: FERROUS SULFATE 325 MG TABLET PO SCH (08:41)
[2018-02-22] MEDS: CALCIUM (CARBONATE)/VITAMIN D 600 MG-400 UNIT TABLET PO SCH (08:41)
[2018-02-22] MEDS: ASPIRIN EC 81 MG TABLET PO SCH (08:41)
[2018-02-22] MEDS: MEGESTROL 400 MG/10 ML UDCUP PO SCH (08:42)
[2018-02-22] MEDS: GABAPENTIN 100 MG CAPSULE PO SCH (08:42)
[2018-02-22] MEDS: FUROSEMIDE 40 MG/4 ML VIAL IV SCH (08:42)
[2018-02-22] MEDS: risperiDONE 0.25 MG TABLET PO SCH (08:42)
[2018-02-22] MEDS: PANTOPRAZOLE 40 MG TABLET PO SCH (08:42)
[2018-02-22] MEDS: LORATADINE 10 MG TABLET PO SCH (08:43)
[2018-02-22 17:42] VITALS: BP 139/87
== END 2018-02-22 11:25 | DRG 308 ==
LOC: EDUNIT# → EDBD → N.ED 10:01 → SUATTDRO 12:04 → N.EDINP 12:04 → N.CC 13:25 → N.5E 02-21 01:32
PROVIDERS: ADMIT Family Medicine; ATTEND Internal Medicine